=== PATIENT | female | born 1960 | race Caucasian/White ===

== ENCOUNTER → 2018-09-08 12:21 | Outpatient (CLI) | payer BC, SELFPAY ==
[2018-09-08 16:28] LABS: Alanine Aminotransfer ALT/SGPT 49 U/L (13-56); Cholesterol 195 mg/dL (200); Creatinine, Serum 0.93 mg/dL (0.55-1.02); EST Glomerular Filtration Rate 66 mL/min (>60); Est Glom Filt Rate - Afr Amer 80 mL/min (>60); High Density Lipoprotein 53 mg/dL; Thyroid Stim Hormone (TSH) 0.86 uIU/mL (0.358-3.74); Triglycerides 155 mg/dL; Very Low Density Lipoprotein 31 mg/dL (5-40)
== END ==
PROVIDERS: Family Provider Family Medicine; PCP Family Medicine; Visit Provider Family Medicine
DX: E78.00 Pure hypercholesterolemia, unspecified (principal)
CPT/HCPCS: 36415; 80061; 82565; 84443; 84460

== ENCOUNTER → 2018-11-19 08:17 | Outpatient (CLI) | payer BC, SELFPAY ==
--- NOTE | 2018-11-19 08:21 | BI_ITS ---
MAMMOGRAPHY - BILATERAL SCREENING REASON FOR EXAM: Female, 58 years old. Routine annual screening examination. PERTINENT HISTORY: Aunt with breast cancer. Prior ultrasound-guided right breast biopsy. TECHNIQUE: Digital bilateral breast young (3D mammographic acquisition) in the CC and MLO projections. 2-D mediolateral oblique (MLO) and craniocaudad (CC) views of both breasts were obtained. CAD: Full Field Digital Mammography with Computer Added Detection was performed. COMPARISON: Comparison is made with prior mammogram dated April 21, 2017 and March 26, 2017. FINDINGS: Breast Composition: There are scattered areas of fibroglandular density. There are no dominant masses or suspicious calcifications. A tissue clip marker is seen in the upper slightly lateral portion of the right breast. A tiny nodular density is seen at that site. No other significant abnormalities are identified. There has been no significant change since the prior study. BI/SCREENING MAMM (CAD), BILAT IMPRESSION: Stable bilateral screening mammogram. Yearly follow-up mammogram recommended. (A) ASSESSMENT CATEGORY: BIRADS Category 2: Benign. A letter regarding these results will be sent to the patient by the facility within 30 days. Approximately 10% of breast cancers are not detected by mammography. A normal mammogram should not delay biopsy of a clinically suspicious abnormality. [id number] Electronically Signed: Javier Spivey MD at 10:04 EST Tel [phone], Service support ,
== END ==
PROVIDERS: Family Provider Family Medicine; PCP Family Medicine; Referring Provider Family Medicine; Visit Provider Family Medicine
DX: Z12.31 Encounter for screening mammogram for malignant neoplasm of breast (principal); Z80.3 Family history of malignant neoplasm of breast
CPT/HCPCS: 77063; 77067

== ENCOUNTER → 2019-09-14 10:22 | Outpatient (CLI) | payer BC, SELFPAY ==
[2019-09-14 12:48] LABS: Absolute Lymphocyte Count 2.13 X10^3/uL (0.83-4.51); Absolute Neutrophil Count 3.8 X10^3/uL (2.0-7.7); Basophil# 0.03 X10^3/uL; Basophil% 0.4 % (0-1); Eosinophil# 0.22 X10^3/uL; Eosinophils% 3.3 % (0-5); Hematocrit 43.4 % (37-47); Hemoglobin 14.2 g/dL (12.0-15.0); Lymphocyte # 2.13 X10^3/ul (4.0); Lymphocyte % 31.5 % (19-41); Mean Corp Hgb Conc 32.7 g/dL (32-36); Mean Corpuscular Hgb 30.5 pg (27.0-32.0); Mean Corpuscular Volume 93.3 fL (81-99); Mean Platelet Vol. 12.3 fl (6.2-12.0); Monocyte# 0.53 X10^3/uL; Monocyte% 7.8 % (0-10); NRBC Flagged by Analyzer 0 % (0-5); Neutrophil # 3.82 X10^3/uL (2.7-7.7); Neutrophil % 56.6 % (47-70); Platelet Count 196 K/mm3 (150-450); RBC Distribution Width CV 12.4 % (11.6-14.6); RBC Distribution Width SD 42.5 fl (35.1-43.9); Red Blood Count 4.65 M/mm3 (4.2-5.4); White Blood Count 6.8 K/mm3 (4.4-11.0)
[2019-09-14 13:30] LABS: ALB/GLOB Ratio 1.2 RATIO (0.9-2.4); AST(SGOT) 22 U/L (15-37); Alanine Aminotransfer ALT/SGPT 42 U/L (13-56); Albumin, Serum 3.8 g/dL (3.2-5.0); Alkaline Phosphatase 84 U/L (45-117); Anion Gap 6 (5-15); BUN 14 mg/dL (7-18); BUN/Creat Ratio 16.5 RATIO (10-20); Chloride 109 mmol/L (98-107); Cholesterol 185 mg/dL (200); Creatinine, Serum 0.85 mg/dL (0.55-1.02); EST Glomerular Filtration Rate 73 mL/min (>60); Est Glom Filt Rate - Afr Amer 88 mL/min (>60); Globulin 3.3 g/dL (2.2-4.2); Glucose 93 mg/dL (74-106); High Density Lipoprotein 57 mg/dL; Protein, Total 7.1 g/dL (6.4-8.2); Sodium Level 140 mmol/L (136-145); Thyroid Stim Hormone (TSH) 0.91 uIU/mL (0.358-3.74); Triglycerides 143 mg/dL; Very Low Density Lipoprotein 29 mg/dL (5-40)
== END ==
PROVIDERS: Family Provider Family Medicine; PCP Family Medicine; Referring Provider Family Medicine; Visit Provider Family Medicine
DX: Z00.00 Encounter for general adult medical examination without abnormal findings (principal); F17.200 Nicotine dependence, unspecified, uncomplicated
CPT/HCPCS: 36415; 80053; 80061; 84443; 85025

== ENCOUNTER → 2019-12-10 08:09 | Outpatient (CLI) | payer BC, SELFPAY ==
--- NOTE | 2019-12-10 08:12 | BI_ITS ---
MAMMOGRAPHY - BILATERAL SCREENING REASON FOR EXAM: Female, 59 years old. Routine annual screening examination. PERTINENT HISTORY: Aunt with breast cancer. Prior right breast biopsy. TECHNIQUE: Digital bilateral breast lisandra (3D mammographic acquisition) in the CC and MLO projections. 2-D mediolateral oblique (MLO) and craniocaudad (CC) views of both breasts were obtained. CAD: Full Field Digital Mammography with Computer Added Detection was performed. COMPARISON: Comparison is made with prior study dated November 19, 2018 and April 21, 2017. FINDINGS: Breast Composition: There are scattered areas of fibroglandular density. There are no dominant masses or suspicious calcifications. Stable small benign-appearing bilateral axillary lymph nodes. A tissue clip marker is once again seen in the upper slightly outer portion of the right breast. This is seen within the tiny nodular density. Stable 4.8 mm nodule in the deep medial aspect of the left breast most likely representing a small intramammary lymph node. No other significant abnormalities are identified. There has been no significant change since the prior study. BI/SCREEN MAMM (CAD) W/LISANDRA BILAT IMPRESSION: Stable bilateral screening mammogram. Yearly follow-up mammogram recommended. (A) ASSESSMENT CATEGORY: BIRADS Category 2: Benign. A letter regarding these results will be sent to the patient by the facility within 30 days. Approximately 10% of breast cancers are not detected by mammography. A normal mammogram should not delay biopsy of a clinically suspicious abnormality. [id number] Electronically Signed: Javier Spivey, at 11:15 EST , Service support ,
== END ==
PROVIDERS: Family Provider Family Medicine; PCP Family Medicine; Referring Provider Family Medicine; Visit Provider Family Medicine
DX: Z12.31 Encounter for screening mammogram for malignant neoplasm of breast (principal)
CPT/HCPCS: 77063; 77067

== ENCOUNTER → 2020-09-28 15:53 | Outpatient (CLI) | payer BC, SELFPAY ==
--- NOTE | 2020-09-28 15:59 | CT_ITS ---
STUDY: CT CHEST WITHOUT CONTRAST- LOW DOSE SCREENING PROTOCOL REASON FOR EXAM: Female, 60 years old. Current smoker. 20 pack per year history. No current symptoms of lung cancer or pulmonary infection. Shared decision-making with referring PCP documented in patient''s record. RADIATION DOSAGE (If Supplied By Facility): CTDIvol = ( 3.40 ) mGy, DLP = ( 109.34 ) mGycm TECHNIQUE: Low dose screening CT examination performed from the base of the neck to the upper abdomen. Sagittal and coronal reformatted images performed. Sagittal and coronal MIP images provided. The measurements provided are average, rounded measurements per ACR guidelines. COMPARISON: 03/14/2017 FINDINGS: Mild emphysematous changes. There is no change in a 4 mm noncalcified subpleural nodule in the right middle lobe the lungs on image 127 consistent with a noncalcified granuloma. This requires no further follow-up. No new noncalcified nodule or mass. There is no demonstrated pleural abnormality. Normal heart and pericardium. There are calcifications of the coronary arteries. Normal mediastinum. Normal hilar regions. Normal unenhanced pulmonary arteries. Normal aorta arch and descending thoracic aorta. Normal osseous structures. There is no demonstrated abnormality of the visualized upper abdomen. CT/Low Dose CT Lung Screening IMPRESSION: 1. No significant indeterminate incidental findings requiring additional imaging. 2. Incidental findings include mild emphysema.. ASSESSMENT CATEGORY: LungRADS 2 - Benign Appearance or Behavior. Continue annual screening with LDCT in 12 months, per established ACR guidelines. Electronically Signed: Quinn Sherman MD at 13:38 EDT Tel , Service support ,
== END ==
PROVIDERS: PCP Family Medicine; Referring Provider Family Medicine; Visit Provider Family Medicine
DX: F17.210 Nicotine dependence, cigarettes, uncomplicated (principal)
CPT/HCPCS: G0297

== ENCOUNTER → 2021-01-03 07:43 | Outpatient (CLI) | payer BC, SELFPAY ==
--- NOTE | 2021-01-03 07:32 | BI_ITS ---
MAMMOGRAPHY - BILATERAL SCREENING REASON FOR EXAM: Female, 60 years old. Routine annual screening examination. PERTINENT HISTORY: Aunt with breast cancer. Remote right stereotactic breast biopsy. TECHNIQUE: Digital bilateral breast lisandra (3D mammographic acquisition) in the CC and MLO projections. 2-D mediolateral oblique (MLO) and craniocaudad (CC) views of both breasts were obtained. CAD: Full Field Digital Mammography with Computer Added Detection was performed. COMPARISON: Comparison is made with prior study dated 12/10/2019 and 11/19/2018. FINDINGS: Breast Composition: There are scattered areas of fibroglandular density. There are no dominant masses or suspicious calcifications. A tissue clip marker is again seen in the slightly upper outer portion of the right breast. A persistent tiny nodule is seen at the biopsy site. Stable 4.8 mm nodule in the deep medial aspect of the left breast most likely represents a small lymph node. No other significant abnormalities are identified. There has been no significant change since the prior study. BI/SCRN MAMM (CAD)W/LISANDRA BILAT IMPRESSION: Stable bilateral screening mammogram. Yearly follow-up mammogram recommended. (A) ASSESSMENT CATEGORY: BIRADS Category 2: Benign. A letter regarding these results will be sent to the patient by the facility within 30 days. Approximately 10% of breast cancers are not detected by mammography. A normal mammogram should not delay biopsy of a clinically suspicious abnormality. [id number] Electronically Signed: Javier Spivey MD at 9:02 EST , Service support ,
== END ==
PROVIDERS: PCP Family Medicine; Referring Provider Family Medicine; Visit Provider Family Medicine
DX: Z12.31 Encounter for screening mammogram for malignant neoplasm of breast (principal)
CPT/HCPCS: 77063; 77067

== ENCOUNTER 2021-02-15 09:54 | Outpatient (RCR) | payer BC, SELFPAY ==
[2021-02-15] MEDS: COVID-19 VACC, MRNA(PFIZER)/PF 30 MCG/0.3 ML SYRINGE IM (12:22)
[2021-03-08] MEDS: COVID-19 VACC, MRNA(PFIZER)/PF 30 MCG/0.3 ML SYRINGE IM (11:46)
== END 2021-02-15 23:59 ==
LOC: IMMUN 09:54
PROVIDERS: PCP Family Medicine; Visit Provider Family Medicine
DX: Z23 Encounter for immunization (principal)
CPT/HCPCS: 0001A; 0002A; 91300

== ENCOUNTER → 2021-09-20 09:33 | Outpatient (CLI) | payer BC, SELFPAY ==
[2021-09-20 12:33] LABS: Hematocrit 43.5 % (37-47); Hemoglobin 14.3 g/dL (12.0-15.0); Mean Corp Hgb Conc 32.9 g/dL (32-36); Mean Corpuscular Hgb 30.7 pg (27.0-32.0); Mean Corpuscular Volume 93.3 fL (81-99); Mean Platelet Vol. 12.2 fl (6.2-12.0); Platelet Count 221 K/mm3 (150-450); RBC Distribution Width CV 12.7 % (11.6-14.6); RBC Distribution Width SD 43.6 fl (35.1-43.9); Red Blood Count 4.66 M/mm3 (4.2-5.4); White Blood Count 7.4 K/mm3 (4.4-11.0)
[2021-09-20 12:55] LABS: AST(SGOT) 19 U/L (15-37); Alanine Aminotransfer ALT/SGPT 43 U/L (13-56); Albumin, Serum 3.7 g/dL (3.2-5.0); Alkaline Phosphatase 85 U/L (45-117); Anion Gap 5 (5-15); BUN 11 mg/dL (7-18); BUN/Creat Ratio 12.1 RATIO (10-20); Calcium,Total 9.8 mg/dL (8.5-10.1); Chloride 108 mmol/L (98-107); Cholesterol 202 mg/dL (200); Creatinine, Serum 0.91 mg/dL (0.55-1.02); EST Glomerular Filtration Rate 67 mL/min (>60); Est Glom Filt Rate - Afr Amer 81 mL/min (>60); Globulin 3.6 g/dL (2.2-4.2); Glucose 102 mg/dL (74-106); High Density Lipoprotein 61 mg/dL; Potassium 4.1 mmol/L (3.5-5.1); Protein, Total 7.3 g/dL (6.4-8.2); Sodium Level 139 mmol/L (136-145); Triglycerides 141 mg/dL; Very Low Density Lipoprotein 28 mg/dL (5-40)
[2021-09-20 13:25] LABS: Hepatitis C Antibody Non-Reactive (Nonreactive)
== END ==
PROVIDERS: PCP Family Medicine; Referring Provider Family Medicine; Visit Provider Family Medicine
DX: E78.00 Pure hypercholesterolemia, unspecified (principal); F17.200 Nicotine dependence, unspecified, uncomplicated; Z11.59 Encounter for screening for other viral diseases
CPT/HCPCS: 36415; 80053; 80061; 85027; 86803

== ENCOUNTER → 2021-10-02 08:14 | Outpatient (CLI) | payer BC, SELFPAY ==
--- NOTE | 2021-10-02 08:21 | CT_ITS ---
EXAM: CT CHEST WITHOUT INTRAVENOUS CONTRAST : 1960 CLINICAL INDICATION: tobacco use TECHNIQUE: Helically acquired images were obtained of the chest without intravenous contrast. This CT exam was performed using one or more of the following dose reduction techniques: automated exposure control, adjustment of the mA and/or kV according to patient size, and/or use of iterative reconstruction technique. This report was created using [employer] report generation technology. COMPARISON: September 28, 2020 FINDINGS: LUNGS AND PLEURAL SPACES: Stable pleural-based nodule within the right middle lobe. Stable mild diffuse pulmonary emphysema. No pneumothorax. HEART: Prominent coronary artery calcification. Heart size is normal. No pericardial effusion. MEDIASTINUM: Unremarkable. No mediastinal or hilar adenopathy. Esophagus is unremarkable. No hiatal hernia. THYROID: Unremarkable. No thyroid lesions. BONES/JOINTS: Unremarkable. No suspicious lytic or blastic abnormality. VASCULATURE: Unremarkable. Thoracic aorta is non-dilated. CT/Low Dose CT Lung Screening IMPRESSION: 1. Stable 4 mm pleural-based right middle lobe pulmonary nodule. Pulmonary emphysema. Coronary artery calcification. 2. Lung-RADS score: 2 - Benign Appearance or Behavior. Recommend continued annual screening with low-dose CT (LDCT) in 12 months. Individualized dose optimization techniques were used for this CT. at 0900 Reported and signed by: Florentino Alvarez MD Electronically Signed: Florentino Alvarez MD at 8:58 EDT Tel , Service support ,
== END ==
PROVIDERS: PCP Family Medicine; Referring Provider Family Medicine; Visit Provider Family Medicine
DX: F17.200 Nicotine dependence, unspecified, uncomplicated (principal)
CPT/HCPCS: 71271

== ENCOUNTER → 2021-11-14 08:56 | Outpatient (CLI) | payer BC, SELFPAY ==
--- NOTE | 2021-11-14 09:00 | BD_ITS ---
STUDY: DUAL ENERGY X-RAY ABSORPTIOMETRY / DXA REASON FOR EXAM: Female, 61 years old. 305.1 -- NICOTINE DEPENDENCE TECHNIQUE: Bone Mineral Density (BMD) measurements of lumbar spine and bilateral hips were obtained. COMPARISON: None. FINDINGS: Lumbar Spine (L1-L4): g/cm2 (1.091) / T-score (0.4) / Z-score (1.9) Findings are suggestive of normal bone density with a low fracture risk. Left Femur Total: g/cm2 (0.845) / T-score (-0.8) / Z-score (0.2) Left Femoral Neck: g/cm2 (0.674) / T-score (1.6) / Z-score (-0.2) Right Femur Total: g/cm2 (0.870) / T-score (-0.6) / Z-score (0.5) Right Femoral Neck: g/cm2 (0.663) / T-score (-1.7) / Z-score (-0.3) BD/Dexa Bone Density Study IMPRESSION: The patient is considered osteopenic as outlined below according to World Hair Organization (WHO) criteria with a moderate fracture risk. Reference Information: The T-score is the number of standard deviations above or below the standard which is normal for young adults at their peak bone mineral density. The World Health Organization (WHO) interprets the T-scores as follows: Above -1 Normal bone density Between -1 and -2.5 Osteopenia Equal to / or below -2.5 Osteoporosis As a practical clinical guideline, osteopenia may be graded as follows: Mild -1 through -1.5 Moderate -1.6 through -2.0 Severe -2.1 through -2.4 The Z-score is the number of standard deviations above or below age-matched controls. A Z-score of less than -1.5 would be considered abnormal. References: 1. NIH Osteoporosis and Related Bone Diseases www osteo.org 2. International Society for Clinical Densitometry www iscd.org 3. National Osteoporosis Foundation www nof.org Electronically Signed: Javier Spivey MD at 9:46 EST , Service support ,
== END ==
PROVIDERS: PCP Family Medicine; Referring Provider Family Medicine; Visit Provider Family Medicine
DX: F17.200 Nicotine dependence, unspecified, uncomplicated (principal)
CPT/HCPCS: 77080

== ENCOUNTER → 2022-09-23 | Outpatient (CLI) | payer BC, SELFPAY ==
[2022-09-23 12:15] LABS: Absolute Lymphocyte Count 1.79 X10^3/uL (0.83-4.51); Absolute Neutrophil Count 3.7 X10^3/uL (2.0-7.7); Basophil# 0.02 X10^3/uL; Basophil% 0.3 % (0-1); Eosinophil# 0.24 X10^3/uL; Eosinophils% 3.8 % (0-5); Hematocrit 39.8 % (37-47); Hemoglobin 13.1 g/dL (12.0-15.0); Lymphocyte # 1.79 X10^3/ul (0.83-4.51); Lymphocyte % 28.3 % (19-41); Mean Corp Hgb Conc 32.9 g/dL (32-36); Mean Corpuscular Hgb 30.6 pg (27.0-32.0); Mean Platelet Vol. 12.1 fl (6.2-12.0); Monocyte# 0.54 X10^3/uL; Monocyte% 8.5 % (0-10); NRBC Flagged by Analyzer 0 % (0-5); Neutrophil # 3.72 X10^3/uL (2.7-7.7); Neutrophil % 58.9 % (47-70); Platelet Count 200 K/mm3 (150-450); RBC Distribution Width SD 43.9 fl (35.1-43.9); Red Blood Count 4.28 M/mm3 (4.2-5.4); White Blood Count 6.3 K/mm3 (4.4-11.0)
[2022-09-23 12:32] LABS: Alanine Aminotransfer ALT/SGPT 48 U/L (13-56); Cholesterol 169 mg/dL (200); EST Glomerular Filtration Rate 60 mL/min (>60); Est Glom Filt Rate - Afr Amer 72 mL/min (>60); High Density Lipoprotein 60 mg/dL; Triglycerides 91 mg/dL; Very Low Density Lipoprotein 18 mg/dL (5-40)
[2022-09-23 12:44] LABS: Hemoglobin A1c 5.4 % (3.8-5.6)
== END | disposition home or self-care (01) ==
LOC: MFPLAB 10:00
PROVIDERS: PCP Family Medicine; Referring Provider Family Medicine; Visit Provider Family Medicine
DX: Z00.00 Encounter for general adult medical examination without abnormal findings (principal)
CPT/HCPCS: 36415; 80061; 82565; 83036; 84460; 85025

== ENCOUNTER → 2022-10-03 | Outpatient (CLI) | payer BC, SELFPAY ==
--- NOTE | 2022-10-03 07:27 | CT_ITS ---
STUDY: LOW DOSE CT LUNG CANCER SCREENING REASON FOR EXAM: Female, 62 years old. Active tobacco use. 10 cigarettes a day for 40 years. RADIATION DOSAGE (If Supplied By Facility): CTDIvol = ( 3.02 ) mGy, DLP = ( 115.51 ) mGycm TECHNIQUE: No contrast was administered. Low dose technique was utilized (average mAS-38 and kVp 120). 1.25 mm axial source images with a slice interval of 1.25-mm were reconstructed in lung windows. 2.5 mm axial source images with a slice interval of 2.5-mm were reconstructed in lung windows. 5.0 mm axial source images with a slice interval of 5.0-mm were reconstructed in soft tissue windows. COMPARISON: October 02, 2021 NODULES: Nodule #: 1 Density: Solid Lung location: Right middle lobe: Pleural-based Location in series: Series Number: 2 Image: 145 Size - D1 x D2 mm: 4 x 4 mm: 4 mm average diameter Margin: Smooth Shape: Triangular Calcification: No Fat: No Temporal comparison: Stable Total lung nodules (excluding granulomas): 1 Emphysema: Stable mild emphysematous changes of the lungs. Endobronchial lesion: None Aorta: Normal CORONARY ARTERIES: Minimal coronary artery calcifications Heart: Normal Pulmonary artery: Normal Mediastinal nodes: No Other chest and abdominal findings: Mild degenerative changes of the thoracic spine. CT/Low Dose CT Lung Screening IMPRESSION: Lung-RADS category 2 - Continue annual screening with LDCT in 12 months. IMPORTANT NOTES FOR USE: ACR Lung-RADS Version 1.1 Assessment Categories Release Date: 2018 Category: Coded 0-4 bases on nodule(s) with highest degree of suspicion. Negative screen is defined as categories 1 and 2; a positive screen is defined as categories 3 and 4. Category 3 and 4A nodules that are unchanged on interval CT should be coded as category 2, and individuals returned to screening in 12 months. Category 4X: Category 3 or 4 nodules with additional imaging findings that increase the suspicion of lung cancer, such as spiculation, GGN that doubles in size in 1 year, enlarged lymph notes, etc. Category Modifiers: S (significant finding unrelated to lung cancer) Electronically Signed: Cam Saenz DO at 17:19 EDT Reading Location ID and State: [address] [place] [address] Tel [phone], Service support ,
--- NOTE | 2022-10-03 07:45 | BI_ITS ---
MAMMOGRAPHY - BILATERAL SCREENING REASON FOR EXAM: Female, 62 years old. Routine annual screening examination. PERTINENT HISTORY: Non-contributory. TECHNIQUE: Digital bilateral breast lisandra (3D mammographic acquisition) in the CC and MLO projections. 2-D mediolateral oblique (MLO) and craniocaudad (CC) views of both breasts were obtained. CAD: Full Field Digital Mammography with Computer Added Detection was performed. COMPARISON: Comparison is made with prior study dated 01/03/2021 and 12/10/2019. FINDINGS: Breast Composition: There are scattered areas of fibroglandular density. There are no dominant masses or suspicious calcifications. Stable 4.8 mm nodule in the deep medial aspect of the left breast. This most likely represent a small lymph node. A tissue clip marker is once again seen within the tiny nodule in the lateral retroareolar region of the right breast. Stable small benign-appearing bilateral axillary lymph nodes. No other significant abnormalities are identified. There has been no significant change since the prior study. BI/SCRN MAMM (CAD)W/LISANDRA BILAT IMPRESSION: Stable bilateral screening mammogram. Yearly follow-up mammogram recommended. (A) ASSESSMENT CATEGORY: BIRADS Category 2: Benign. A letter regarding these results will be sent to the patient by the facility within 30 days. Approximately 10% of breast cancers are not detected by mammography. A normal mammogram should not delay biopsy of a clinically suspicious abnormality. [id number] Electronically Signed: Javier Spivey MD at 9:02 EDT ,
== END | disposition home or self-care (01) ==
PROVIDERS: PCP Family Medicine; Referring Provider Family Medicine; Visit Provider Family Medicine
DX: Z12.31 Encounter for screening mammogram for malignant neoplasm of breast (principal); F17.200 Nicotine dependence, unspecified, uncomplicated
CPT/HCPCS: 71271; 77063; 77067

== ENCOUNTER → 2023-10-02 | Outpatient (CLI) | payer BC, SELFPAY ==
[2023-10-02 17:36] LABS: Absolute Lymphocyte Count 2.27 X10^3/uL (0.83-4.51); Absolute Neutrophil Count 2.9 X10^3/uL (2.0-7.7); Basophil# 0.02 X10^3/uL; Basophil% 0.3 % (0-1); Eosinophil# 0.12 X10^3/uL; Eosinophils% 2.1 % (0-5); Hematocrit 41.8 % (37-47); Hemoglobin 13.7 g/dL (12.0-15.0); Lymphocyte # 2.27 X10^3/ul (0.83-4.51); Lymphocyte % 39.6 % (19-41); Mean Corp Hgb Conc 32.8 g/dL (32-36); Mean Corpuscular Volume 91.5 fL (81-99); Mean Platelet Vol. 11.5 fl (6.2-12.0); Monocyte# 0.46 X10^3/uL; NRBC Flagged by Analyzer 0 % (0-5); Neutrophil # 2.85 X10^3/uL (2.7-7.7); Neutrophil % 49.8 % (47-70); Platelet Count 233 K/mm3 (150-450); RBC Distribution Width CV 12.8 % (11.6-14.6); RBC Distribution Width SD 42.6 fl (35.1-43.9); Red Blood Count 4.57 M/mm3 (4.2-5.4); White Blood Count 5.7 K/mm3 (4.4-11.0)
[2023-10-02 18:03] LABS: Hemoglobin A1c 5.2 % (3.8-5.6)
[2023-10-02 18:13] LABS: Alanine Aminotransfer ALT/SGPT 52 U/L (13-56); Cholesterol 179 mg/dL (200); Creatinine, Serum 0.92 mg/dL (0.55-1.02); EST Glomerular Filtration Rate 66 mL/min (>60); Est Glom Filt Rate - Afr Amer 79 mL/min (>60); High Density Lipoprotein 64 mg/dL; Triglycerides 105 mg/dL; Very Low Density Lipoprotein 21 mg/dL (5-40)
== END | disposition home or self-care (01) ==
LOC: MFPLAB 15:37
PROVIDERS: PCP Family Medicine; Visit Provider Family Medicine
DX: E66.01 Morbid (severe) obesity due to excess calories (principal); E78.00 Pure hypercholesterolemia, unspecified; Z68.36 Body mass index [BMI] 36.0-36.9, adult
CPT/HCPCS: 36415; 80061; 82565; 83036; 84460; 85025

== ENCOUNTER → 2023-11-17 | Outpatient (CLI) | payer BC, SELFPAY ==
--- NOTE | 2023-11-17 08:14 | BI_ITS ---
MAMMOGRAPHY - BILATERAL SCREENING REASON FOR EXAM: Female, 63 years old. Routine annual screening examination. PERTINENT HISTORY: Non-contributory. TECHNIQUE: Digital bilateral breast lisandra (3D mammographic acquisition) in the CC and MLO projections. 2-D mediolateral oblique (MLO) and craniocaudad (CC) views of both breasts were obtained. CAD: Full Field Digital Mammography with Computer Added Detection was performed. COMPARISON: Comparison is made with prior study dated October 03, 2022 and January 03, 2021. FINDINGS: Breast Composition: There are scattered areas of fibroglandular density. Stable 7.4 mm nodule in the deep medial aspect of the left breast dated this most likely represents a small lymph node. Once again, a tissue clip marker is seen in the tiny nodule in the lateral retroareolar region of the right breast. No other significant abnormalities are identified. There has been no significant change since the prior study. BI/SCRN MAMM (CAD)W/LISANDRA BILAT IMPRESSION: Stable bilateral screening mammogram. Yearly follow-up mammogram recommended. (A) ASSESSMENT CATEGORY: BIRADS Category 2: Benign. A letter regarding these results will be sent to the patient by the facility within 30 days. Approximately 10% of breast cancers are not detected by mammography. A normal mammogram should not delay biopsy of a clinically suspicious abnormality. [id number] Electronically Signed: Javier Spivey MD at 9:58 EST ,
== END | disposition home or self-care (01) ==
LOC: OPBI 08:12
PROVIDERS: PCP Family Medicine; Referring Provider Family Medicine; Visit Provider Family Medicine
DX: Z12.31 Encounter for screening mammogram for malignant neoplasm of breast (principal)
CPT/HCPCS: 77063; 77067

== ENCOUNTER → 2024-10-04 | Outpatient (CLI) | payer BC, SELFPAY ==
[2024-10-04 10:43] LABS: ALB/GLOB Ratio 1.1 RATIO (0.9-2.4); AST(SGOT) 26 U/L (15-37); Alanine Aminotransfer ALT/SGPT 57 U/L (13-56); Albumin, Serum 3.7 g/dL (3.2-5.0); Alkaline Phosphatase 82 U/L (45-117); Anion Gap 8 (5-15); BUN 21 mg/dL (7-18); Calcium,Total 8.9 mg/dL (8.5-10.1); Chloride 110 mmol/L (98-107); Cholesterol 215 mg/dL (200); Creatinine, Serum 1.05 mg/dL (0.55-1.02); EST Glomerular Filtration Rate 56 mL/min (>60); Est Glom Filt Rate - Afr Amer 68 mL/min (>60); Globulin 3.4 g/dL (2.2-4.2); Glucose 109 mg/dL (74-106); High Density Lipoprotein 75 mg/dL; Potassium 3.9 mmol/L (3.5-5.1); Protein, Total 7.1 g/dL (6.4-8.2); Sodium Level 142 mmol/L (136-145); Triglycerides 139 mg/dL; Very Low Density Lipoprotein 28 mg/dL (5-40)
== END | disposition home or self-care (01) ==
LOC: MFPLAB 09:26
PROVIDERS: PCP Family Medicine; Visit Provider Family Medicine
DX: E78.00 Pure hypercholesterolemia, unspecified (principal)
CPT/HCPCS: 36415; 80053; 80061

== ENCOUNTER → 2024-11-25 | Outpatient (CLI) | payer BC, SELFPAY ==
--- NOTE | 2024-11-25 08:32 | BI_ITS ---
MAMMOGRAPHY - BILATERAL SCREENING 3-D TOMOSYNTHESIS REASON FOR EXAM: Female, 64 years old. bi-annual screening PERTINENT HISTORY: No significant family history. TECHNIQUE: 2-D mammograms and 3-D Tomosynthesis of the breast (s) were performed. CAD was performed. COMPARISON: 11/17/2023 FINDINGS: The breast composition is composed of scattered fibroglandular density. Scattered benign calcifications are seen. No dominant mass right breast. 1 cm irregular microlobulated equal density mass in the medial left breast at posterior depth and focal compression views recommended for further evaluation. No suspicious calcifications.. No architectural distortion is identified. There is no skin thickening or retraction. BI/SCRN MAMM (CAD)W/LISANDRA BILAT IMPRESSION: Further imaging evaluation is recommended. ASSESSMENT CATEGORY: BIRADS Category 0: Incomplete. Need additional imaging evaluation as above. A letter regarding these results will be sent to the patient by the facility within 30 days. FOLLOW UP RECOMMENDATION: Additional imaging recommended as above. (E) Approximately 10% of breast cancers are not detected by mammography. A normal mammogram should not delay biopsy of a clinically suspicious abnormality. Electronically Signed: Quinn Sherman MD at 19:40 EST ,
== END | disposition home or self-care (01) ==
PROVIDERS: PCP Family Medicine; Referring Provider Family Medicine; Visit Provider Family Medicine
DX: Z12.31 Encounter for screening mammogram for malignant neoplasm of breast (principal)
CPT/HCPCS: 77063; 77067

== ENCOUNTER → 2024-11-29 | Outpatient (CLI) | payer BC, SELFPAY ==
--- NOTE | 2024-11-29 14:25 | BI_ITS ---
MAMMOGRAPHY - UNILATERAL DIAGNOSTIC: LEFT BREAST REASON FOR EXAM: Female, 64 years old. ABN MAMM PERTINENT HISTORY: Non-contributory. TECHNIQUE: Digital examination. Mediolateral oblique (MLO) and craniocaudad (CC) views of the breast were obtained. CAD: CAD was not performed on this study. COMPARISON: 11/25/2024 FINDINGS: Breast Composition: There are scattered areas of fibroglandular density. Focal compression views confirm a 1 cm irregular microlobulated equal density mass in the lower quadrant left breast at posterior depth and ultrasound is recommended for further evaluation. No other significant abnormalities are identified. BI/DIAG MAMM W/CAD, UNILAT IMPRESSION: Further ultrasonographic evaluation recommended, as described above. ASSESSMENT CATEGORY: BIRADS Category 0: Incomplete. Need additional imaging evaluation. A letter regarding these results will be sent to the patient by the facility within 30 days. FOLLOW-UP RECOMMENDATION: Ultrasound recommended. (I) Approximately 10% of breast cancers are not detected by mammography. A normal mammogram should not delay biopsy of a clinically suspicious abnormality. Electronically Signed: Quinn Sherman MD at 14:54 EST ,
--- NOTE | 2024-11-29 14:25 | US_ITS ---
STUDY: ULTRASOUND BREAST - LEFT REASON FOR EXAM: Female, 64 years old. Abnormal screening mammogram. TECHNIQUE: Axial and longitudinal images of the LEFT breast were performed with a high resolution ultrasound transducer. # OF IMAGES: 54 COMPARISON: Diagnostic mammogram earlier today, screening mammogram 11/25/2024 FINDINGS: LEFT Breast: Homogeneous fatty background echotexture. Multiple longitudinal and transverse ultrasound images of the medial left breast did not demonstrate a discrete solid or cystic mass most consistent with normal breast parenchyma.: US/Breast Limited Unilateral IMPRESSION: Normal left breast ultrasound. Short interval follow-up is recommended. CC, MLO, CC focal compression, and MLO focal compression views of the left breast are recommended in 6 months. ASSESSMENT CATEGORY: BIRADS Category 3: Probably Benign. Short-Interval Follow-up Suggested. A letter regarding these results will be sent to the patient by the facility within 30 days. Electronically Signed: Quinn Sherman MD at 18:46 EST ,
== END | disposition home or self-care (01) ==
PROVIDERS: PCP Family Medicine; Referring Provider Family Medicine; Visit Provider Family Medicine
DX: R92.8 Other abnormal and inconclusive findings on diagnostic imaging of breast (principal)
CPT/HCPCS: 76642; 77065

== ENCOUNTER → 2025-05-04 | Outpatient (CLI) | payer MEDICARE, SELFPAY ==
--- OUTSIDE RECORDS SUMMARY | 2025-05-04 09:07 | XMS RPT_ITS | CCD ---
Author Organization [facility] Care Team Providers Care Acid Bath Mixer Name Role Phone Allen CRUZ, Beatris F Unavailable Unavailabl e Kwame Frias Unavailable Unavailable Allen CRUZ, Beatris F Unavailable Unavailsiria e Trever Saldana Primary Care Unavailable Trever Saldana Attending Unavailable Trever Saldana Referring Unavailable Les Trever Referring Unavailable Trever Saldana Primary Care Unavailable Les Trever Attending Unavailable Les Trever Referring Unavailable Trever Saldana Primary Care Unavailable Les Trever Attending Unavailable Les Trever Primary Care Unavailable Les Trever Attending Unavailable Medications Current Medications Medication Drug Class(es) Dates Sig (Normalized) Sig (Original) atorvastatin 20 mg oral tablet (4 sources) HMG-CoA Reductase Inhibitor Start: 11-17-2017 take 20 mg by mouth once daily Atorvastatin Active 20 MG PO daily November 17, 2017 12:00am take 1 tablet by mouth once piotr y ATORVASTATIN CALCIUM 20 MG TABS One tablet by mouth daily ATORVASTATIN CALCIUM [id number] Valentina Walker ibuprofen 200 mg oral capsule (4 sources) Nonsteroidal Anti-inflammatory Drug Start: 11-17-2017 take 200 mg by mouth once Ibuprofen Active 200 MG PO ONCE November 17, 2017 12:00am IBUPROFEN 200 MG TABS as needed IBUPROFEN [id number] Valentina Walker Problems Active Problems Problem Classification Problem Date Documented Da te Episodic/Chronic Disorders of lipid metabolism (1 source) Pure hypercholesterolemi a, unspecified; Translations: [Pure hypercholesterolemi a, unspecified] Onset: 10-25-2024 Chronic Nonmalignant breast conditions (3 sources) Breast lump; Translations: [Unspecified lump in the right breast, unspecified quadrant] Onset: 04-01-2017 04-01-2017 Episodic Other nutritional; endocrine; and metabolic disorders (4 sources) Overweight; Translations: [Body mass index (BMI) 34.0-34.9, adult] Onset: 04-01-2017 04-01-2017 Chronic Residual codes; unclassified (1 source) Other general symptoms and signs; Translations: [Other general symptoms and signs] Onset: 05-02-2025 Episodic Screening or history of mental health and substance abuse (3 sources) Smoker; Translations: [Nicotine dependence, unspecified, uncomplicated] Onset: 08-22-2015 09-09-2015 Chronic Past or Other Problems Problem Classification Problem Date Documented Da te Episodic/Chronic Other infections (3 sources) Personal history of other infectious and parasitic diseases; Translations: [Personal history of other infectious and parasitic diseases] Onset: 08-22-2015 08-29-2015 Episodic Other screening for suspected conditions (not mental disorders or infectious disease) (2 sources) Other abnormal and inconclusive findings on diagnostic imaging of breast; Translations: [Encounter for screening mammogram for malignant neoplasm of breast] Onset: 12-19-2024 Episodic Other skin disorders (3 sources) Localized swelling, mass and lump, neck; Translations: [Localized swelling, mass and lump, neck] Onset: 08-22-2015 08-29-2015 Episodic Unclassified (3 sources) Family history of malignant neoplasm of skin; Translations: [Family history of malignant neoplasm of other organs or systems] Onset: 08-22-2015 09-09-2015 Episodic Results Test Name Value Interpretation Reference Range Facility Breast Limited Unilateralon 11-29-2024 Breast Limited Unilateral [facility] Imaging Services [address] [place] [address] Breast Limited Unilateral MR#: [id number] Acct: [id number] Name: DHAVAL COLON [facility] Rep #: [id number] : 1960 F 64 From: Quinn Sherman MD PCP: Dr. Trever Saldana MD Status: REG CLI Study: Breast Limited Unilateral Date of Exam: Exam# [id number] Ordering Dr: Trever Saldana MD -[id number] STUDY: ULTRASOUND BREAST - LEFT REASON FOR EXAM: Female, 64 years old. Abnormal screening mammogram. TECHNIQUE: Axial and longitudinal images of the LEFT breast were performed with a high resolution ultrasound transducer. # OF IMAGES: [id number] COMPARISON: Diagnostic mammogram earlier today, screening mammogram 11/25/2024 FINDINGS: LEFT Breast: Homogeneous fatty background echotexture. Multiple longitudinal and transverse ultrasound images of the medial left breast did not demonstrate a discrete solid or cystic mass most consistent with normal breast parenchyma.: US/Breast Limited Unilateral IMPRESSION: Normal left breast ultrasound. Short interval follow-up is recommended. CC, MLO, CC focal compression, and MLO focal compression views of the left breast are recommended in 6 months. ASSESSMENT CATEGORY: BIRADS Category 3: Probably Benign. Short-Interval Follow-up Suggested. A letter regarding these results will be sent to the patient by the facility within 30 days. Electronically Signed: Quinn Sherman MD at 18:46 EST , CC: Dr. Trever Saldana MD Engraver Tender: Signed Normal [facility] DIAG MAMM W/CAD, UNILATon DIAG MAMM W/CAD, UNILAT [facility] Imaging Services [address] [place] [id number] DIAG MAMM W/CAD, UNILAT MR#: [id number] Acct: [id number] Name: DHAVAL COLON Rep #: [id number] : 1960 F 64 From: Quinn Sherman MD PCP: Dr. Trever Saldana MD Status: [facility] Study: DIAG MAMM W/CAD, UNILAT Date of Exam: 11/29/24 Exam# [id number] Ordering Dr: Trever Saldana MD -[id number] MAMMOGRAPHY - UNILATERAL DIAGNOSTIC: LEFT BREAST REASON FOR EXAM: Female, 64 years old. ABN MAMM PERTINENT HISTORY: Non-contributory. TECHNIQUE: Digital examination. Mediolateral oblique (MLO) and craniocaudad (CC) views of the breast were obtained. CAD: CAD was not performed on this study. COMPARISON: 11/25/2024 FINDINGS: Breast Composition: There are scattered areas of fibroglandular density. Focal compression views confirm a 1 cm irregular microlobulated equal density mass in the lower quadrant left breast at posterior depth and ultrasound is recommended for further evaluation. No other significant abnormalities are identified. BI/DIAG MAMM W/CAD, UNILAT IMPRESSION: Further ultrasonographic evaluation recommended, as described above. ASSESSMENT CATEGORY: BIRADS Category 0: Incomplete. Need additional imaging evaluation. A letter regarding these results will be sent to the patient by the facility within 30 days. FOLLOW-UP RECOMMENDATION: Ultrasound recommended. (I) Approximately 10% of breast cancers are not detected by mammography. A normal mammogram should not delay biopsy of a clinically suspicious abnormality. Electronically Signed: Quinn Sherman MD at 14:54 EST , CC: Dr. Trever Saldana MD Engraver Tender: Signed Normal [facility] SCRN MAMM (CAD)W/LISANDRA BILATo n 11-25-2024 SCRN MAMM (CAD)W/LISANDRA BILAT [facility] Imaging Services [address] [place] [address] SCRN MAMM (CAD)W/LISANDRA BILAT MR#: [id number] Acct: [id number] Name: DHAVAL COLON Rep #: [id number] : 1960 F 64 From: Quinn Sherman MD PCP: Dr. Trever Saldana MD Status: REG CLI Study: SCRN MAMM (CAD)W/LISANDRA BILAT Date of Exam: 10/31 06/22 Exam# [id number] Ordering Dr: Trever Saldana MD -[id number] MAMMOGRAPHY - BILATERAL SCREENING 3-D TOMOSYNTHESIS REASON FOR EXAM: Female, 64 years old. bi-annual screening PERTINENT HISTORY: No significant family history. TECHNIQUE: 2-D mammograms and 3-D Tomosynthesis of the breast (s) were performed. CAD was performed. COMPARISON: 11/17/2023 FINDINGS: The breast composition is composed of scattered fibroglandular density. Scattered benign calcifications are seen. No dominant mass right breast. 1 cm irregular microlobulated equal density mass in the medial left breast at posterior depth and focal compression views recommended for further evaluation. No suspicious calcifications.. No architectural distortion is identified. There is no skin thickening or retraction. BI/SCRN MAMM (CAD)W/LISANDRA BILAT IMPRESSION: Further imaging evaluation is recommended. ASSESSMENT CATEGORY: BIRADS Category 0: Incomplete. Need additional imaging evaluation as above. A letter regarding these results will be sent to the patient by the facility within 30 days. FOLLOW UP RECOMMENDATION: Additional imaging recommended as above. (E) Approximately 10% of breast cancers are not detected by mammography. A normal mammogram should not delay biopsy of a clinically suspicious abnormality. Electronically Signed: Quinn Sherman MD at 19:40 EST , CC: Dr. Trever Saldana MD Engraver Tender: Signed Normal [facility] Comprehensive Metabolic Prof ilon 10-04-2024 Albumin [Mass/Vol] 3.7 g/dL Normal 3.2-5.0 [facility] Comment on above: Order Comment: Order Date: 10/04/24 Order Info: 0786-1 - CMP Order Info: [id number] - LIPID Performed By: #### L 500.4100, L500.4050 #### [facility] [address] [place], [address] Albumin/Globulin [Mass ratio] 1.1 {ratio} Normal 0.9-2.4 [facility] Comment on above: Order Comment: Order Date: 10/04/24 Order Info: 0786-1 - CMP Order Info: [id number] - LIPID Performed By: #### L 500.4100, L500.4050 #### [facility] [address] [place], [address] ALK P 82 U/L Normal 45-117 [facility] Comment on above: Order Comment: Order Date: 10/04/24 Order Info: [id number] - CMP Order Info: [id number] - LIPID Performed By: #### L 500.4100, L500.4050 #### [facility] [address] [place], [address] ALT [Catalytic activity/Vol] 57 U/L High 13-56 [facility] Comment on above: Order Comment: Order Date: 10/04/24 Order Info: 0786-1 - CMP Order Info: [id number] - LIPID Performed By: #### L 500.4100, L500.4050 #### [facility] [address] [place], [address] AST [Catalytic activity/Vol] 26 U/L Normal 15-37 [facility] Comment on above: Order Comment: Order Date: 10/04/24 Order Info: 0786-1 - CMP Order Info: [id number] - LIPID Performed By: #### L 500.4100, L500.4050 #### [facility] [address] [place], [address] Bilirubin [Mass/Vol] 0.80 mg/dL Normal 0.20-1.00 [facility] Comment on above: Order Comment: Order Date: 10/04/24 Order Info: 0786-1 - CMP Order Info: [id number] - LIPID Result Comment: For patients on eltrombopag therapy, use of Dimension [place] TBIL is not recommended. Performed By: #### L 500.4100, L500.4050 #### [facility] [address] [place], [address] BUN/CRE 20.0 RATIO Normal 10-20 [facility] Comment on above: Order Comment: Order Date: 10/04/24 Order Info: 0786- - CMP Order Info: [id number] - LIPID Performed By: #### L 500.4100, L500.4050 #### [facility] [address] [place], [address] CA,Total 8.9 mg/dL Normal 8.5-10.1 [facility] Comment on above: Order Comment: Order Date: 10/04/24 Order Info: 0786- - CMP Order Info: [id number] - LIPID Performed By: #### L 500.4100, L500.4050 #### [facility] [address] [place], [address] Chloride [Moles/Vol] 110 mmol/L High 98-107 [facility] Comment on above: Order Comment: Order Date: 10/04/24 Order Info: 0786- - CMP Order Info: [id number] - LIPID Performed By: #### L 500.4100, L500.4050 #### [facility] [address] [place], [address] CO2 [Moles/Vol] 25.0 mmol/L Normal 21.0-32.0 [facility] Comment on above: Order Comment: Order Date: 10/04/24 Order Info: 0786-1 - CMP Order Info: [id number] - LIPID Performed By: #### L 500.4100, L500.4050 #### [facility] [address] [place], [address] Creatinine [Mass/Vol] 1.05 mg/dL High 0.55-1.02 [facility] Comment on above: Order Comment: Order Date: 10/04/24 Order Info: 07 - CMP Order Info: [id number] - LIPID Result Comment: The validity of the calculated GFR GFRAA in patients over 70 years has not been determined. Clinical correlation is essential. Performed By: #### L 500.4100, L500.4050 #### [facility] [address] [place], [place], [id number] EST GFR - AA 68 mL/min Normal >60 [facility] Comment on above: Order Comment: Order Date: 10/04/24 Order Info: 07 - CMP Order Info: [id number] - LIPID Result Comment: Afri can [place] GFR Calc Performed By: #### L 500.4100, L500.4050 #### [facility] [address] [place], [address] GAP 8 Normal 5-15 [facility] Comment on above: Order Comment: Order Date: 10/04/24 Order Info: [id number] - CMP Order Info: [id number] - LIPID Performed By: #### L 500.4100, L500.4050 #### [facility] [address] [place], [address] GFR/1.73 sq M.predicted among non-blacks MDRD (S/P/Bld) [Vol rate/Area] 56 mL/min/{1.73_m2} Low >60 [facility] Comment on above: Order Comment: Order Date: 10/04/24 Order Info: 07 - CMP Order Info: [id number] - LIPID Result Comment: Non- GFR Calc Performed By: #### L 500.4100, L500.4050 #### [facility] [address] [place], [address] Globulin (S) [Mass/Vol] 3.4 g/dL Normal 2.2-4.2 [facility] Comment on above: Order Comment: Order Date: 10/04/24 Order Info: 0786- - CMP Order Info: [id number] - LIPID Performed By: #### L 500.4100, L500.4050 #### [facility] [address] [place], [address] Glucose [Mass/Vol] 109 mg/dL High 74-106 [facility] Comment on above: Order Comment: Order Date: 10/04/24 Order Info: 0786- - CMP Order Info: [id number] - LIPID Result Comment: Fast ing Glucose result from 100 to 125 mg/dL suggests IMPAIRED HOMEOSTASIS per A.D.A. criteria. Performed By: #### L 500.4100, L500.4050 #### [facility] [address] [place], [address] Potassium [Moles/Vol] 3.9 mmol/L Normal 3.5-5.1 [facility] Comment on above: Order Comment: Order Date: 10/04/24 Order Info: 0786- - CMP Order Info: [id number] - LIPID Performed By: #### L 500.4100, L500.4050 #### [facility] [address] [place], [address] Sodium [Moles/Vol] 142 mmol/L Normal 136-145 [facility] Comment on above: Order Comment: Order Date: 10/04/24 Order Info: 0786- - CMP Order Info: [id number] - LIPID Performed By: #### L 500.4100, L500.4050 #### [facility] [address] [place], [address] T PROT 7.1 g/dL Normal 6.4-8.2 [facility] Comment on above: Order Comment: Order Date: 10/04/24 Order Info: 0786-1 - CMP Order Info: [id number] - LIPID Performed By: #### L 500.4100, L500.4050 #### [facility] [address] [place], [address] Urea nitrogen [Mass/Vol] 21 mg/dL High 7-18 [facility] Comment on above: Order Comment: Order Date: 10/04/24 Order Info: 0786 - CMP Order Info: [id number] - LIPID Performed By: #### L 500.4100, L500.4050 #### [facility] [address] [place], [address] Lipid Profileon 10-04-2024 Cholesterol [Mass/Vol] 215 mg/dL High 200 [facility] Comment on above: Order Comment: Order Date: 10/04/24 Order Info: 07 - CMP Order Info: [id number] - LIPID Result Comment: <200 mg/dL Desirable 200-240 mg/dL Borderline >240 mg/dL High Risk Performed By: #### L 500.4100, L500.4050 #### [facility] [address] [place], [address] Cholesterol in HDL [Mass/Vol] 75 mg/dL Normal [facility] Comment on above: Order Comment: Order Date: 10/04/24 Order Info: 0786 - CMP Order Info: [id number] - LIPID Result Comment: The drugs N-Acetylcysteine and Metamizole may falsely depress this assay. Reference Range HDL <40 mg/dL Low HDL Cholesterol HDL >or= 60 mg/dL High HDL Cholesterol Performed By: #### L 500.4100, L500.4050 #### [facility] [address] [place], [address] Cholesterol in LDL [Mass/Vol] 112 mg/dL Normal 0-130 [facility] Comment on above: Order Comment: Order Date: 10/04/24 Order Info: 0786- - CMP Order Info: [id number] - LIPID Performed By: #### L 500.4100, L500.4050 #### [facility] [address] [place], [address] Cholesterol in VLDL [Mass/Vol] 28 mg/dL Normal 5-40 [facility] Comment on above: Order Comment: Order Date: 10/04/24 Order Info: 0786-1 - CMP Order Info: [id number] - LIPID Performed By: #### L 500.4100, L500.4050 #### [facility] [address] [place], [address] Triglyceride [Mass/Vol] 139 mg/dL Normal [facility] Comment on above: Order Comment: Order Date: 10/04/24 Order Info: 0786-1 - CMP Order Info: [id number] - LIPID Result Comment: The drugs N-Acetylcysteine and Metamizole may falsely depress this assay. Serum Triglycerides Reference Interval Normal <150 mg/dL Borderline high 150 - 199 mg/dL High 200 - 499 mg/dL Very High > or = 500 mg/dL Performed By: #### L 500.4100, L500.4050 #### [facility] [address] [place], [address] Absolute lymphocyte countOrd ered By: Trever Saldana on 10-02-2023 Lymphocytes Auto (Unsp spec) [#/Vol] 2.27 10*3/uL 0.83-4.51 [facility] Basophil percentageOrdered B y: Trever Saldana on 10-02-2023 Basophils/100 WBC (Bld) 0.3 % 0-1 [facility] Cholesterol [Mass/Vol] 179 mg/dL <200 [facility] Comment on above: <200 mg/dL Desirable 200-240 mg/dL Borderline >240 mg/dL High Risk Eosinophils/100 WBC (Bld) 2.1 % 0-5 [facility] Neutrophils (Bld) [#/Vol] 2.9 10*3/uL 2.0-7.7 [facility] Neutrophils/100 WBC (Bld) 49.8 % 47-70 [facility] Triglyceride [Mass/Vol] 105 mg/dL <199 [facility] Comment on above: The drugs N-Acetylcy steine and Metamizole may falsely depress this assay.Serum Triglycerides Reference Interval Normal <150 mg/dL Borderline high 150 - 199 mg/dL High 200 - 499 mg/dL Very High > or = 500 mg/dL WBC (Bld) [#/Vol] 5.7 10*3/uL 4.4-11.0 [facility] Blood erythrocytes count (nu mber/volume)Ordered By: Trever Saldana on 10-02-2023 RBC (Bld) [#/Vol] 4.57 10*6/uL 4.2-5.4 [facility] Blood hemoglobin measurement (mass/volume)Ordered By: Trever Saldana on 10-02-2023 Hemoglobin (Bld) [Mass/Vol] 13.7 g/dL 12.0-15.0 [facility] Blood lymphocytes/100 leukoc ytesOrdered By: Trever Saldana on 10-02-2023 Lymphocytes/100 WBC (Bld) 39.6 % 19-41 [facility] Blood monocytes/100 leukocyt esOrdered By: Trever Saldana on 10-02-2023 Monocytes/100 WBC (Bld) 8.0 % 0-10 [facility] Blood platelet mean volumeOr dered By: Trever Saldana on 10-02-2023 Platelet mean volume (Bld) [Entitic vol] 11.5 fL 6.2-12.0 [facility] Determination of erythrocyte mean corpuscular volume (MCV)Ordered By: Trever Saldana on 10-02-2023 MCV (RBC) [Entitic vol] 91.5 fL 81-99 [facility] Hematocrit Auto (Bld) [Volum e fraction]Ordered By: Trever Saldana on 10-02-2023 Hematocrit (Bld) [Volume fraction] 41.8 % 37-47 [facility] - Chemistry and C hemistry - challengeOrdered By: Trever Saldana on 10-02-2023 ALT [Catalytic activity/Vol] 52 U/L 13-56 [facility] - Hematology and Cell countsOrdered By: Trever Saldana on 10-02-2023 Erythrocyte distribution width (RBC) [Entitic vol] 42.6 fL 35.1-43.9 [facility] Erythrocyte distribution width (RBC) [Ratio] 12.8 % 11.6-14.6 [facility] Immature granulocytes/100 WBC (Bld) 0.200 % 0.0-0.9 [facility] Comment on above: IG% - Immature Granu locytes (promyelocytes, myelocytes and metamyelocytes) > 1% indicates that a LEFT SHIFT is Present. MCH (RBC) [Entitic mass] 30.0 pg 27.0-32.0 [facility] Nucleated RBC/100 WBC (Bld) [Ratio] 0 % 0-5 [facility] MCHC Auto (RBC) [Mass/Vol]Or dered By: Trever Saldana on 10-02-2023 MCHC (RBC) [Mass/Vol] 32.8 g/dL 32-36 [facility] No Panel InformationOrdered By: Trever Saldana on 10-02-2023 Estimated GFR (MDRD) Amer 79 mL/min >60 [facility] Comment on above: GFR Calc Estimated GFR (MDRD) Non-Af Amer 66 mL/min >60 [facility] Comment on above: Non- GFR Calc Platelets bldOrdered By: Lissett Saldana on 10-02-2023 Platelets (Bld) [#/Vol] 233 10*3/uL 150-450 [facility] Serum or plasma cholesterol in HDL measurement (mass/volume)Ordered By: Trever Saldana on 10-02-2023 Cholesterol in HDL [Mass/Vol] 64 mg/dL >40 [facility] Comment on above: The drugs N-Acetylcy steine and Metamizole may falsely depress this assay. Reference Range HDL <40 mg/dL Low HDL Cholesterol HDL >or= 60 mg/dL High HDL Cholesterol Serum or plasma cholesterol in VLDL measurement (mass/volume)Ordered By: Trever Saldana on 10-02-2023 Cholesterol in VLDL [Mass/Vol] 21 mg/dL 5-40 [facility] Serum or plasma creatinine m easurement (mass/volume)Ordered By: Trever Saldana on 10-02-2023 Creatinine [Mass/Vol] 0.92 mg/dL 0.55-1.02 [facility] Comment on above: The validity of the calculated GFR & GFRAA in patients over 70 years has not been determined. Clinical correlation is essential. Serum or plasma low density lipoprotein (LDL) cholesterol measurement (mass/volume)Ordered By: Trever Saldana on 10-02-2023 Cholesterol in LDL [Mass/Vol] 94 mg/dL 0-130 [facility] Whole blood hemoglobin A1c/t otal hemoglobin ratio (mass fraction)Ordered By: Trever Saldana on 10-02-2023 HbA1c (Bld) [Mass fraction] 5.2 % 3.8-5.6 [facility] Comment on above: Normal < 5.7 % Predi abetic 5.7 - 6.4 % Diabetic >or= 6.5 % Please note range changes. Office Visit: Abnormal right mammogramon 04-01-2017 Dietary management education, guidance, and counseling (procedure) yes Invalid Interpretation Code [facility] Work Phone: Documentation of current medications (procedure) Done Invalid Interpretation Code [facility] Work Phone: Fall risk assessment Fall risk assessment Invalid Interpretation Code [facility] Work Phone: Smoking cessation education (procedure) yes Invalid Interpretation Code [place] [email or web address] Work Phone: Tobacco use [facility] Current every day smoker Invalid Interpretation Code [facility] Work Phone: Office Visit: Abnormal right mammogramon 03-26-2017 Breast Mammogram screening Abnormal Right Invalid Interpretation Code [facility] Work Phone: Office Visit: evaluation inf ected cystic lesion left upper neck by david 08-22-2015 Alcoholism counseling (procedure) no Invalid Interpretation Code [facility] Work Phone: Dietary management education, guidance, and counseling (procedure) yes Invalid Interpretation Code [facility] Work Phone: Documentation of current medications (procedure) Done Invalid Interpretation Code [facility] Work Phone: Smoking cessation education (procedure) yes Invalid Interpretation Code [facility] Work Phone: Tobacco smoking status NHIS Never Invalid Interpretation Code [facility] Work Phone: Tobacco use [facility] Current every day smoker Invalid Interpretation Code [facility] Work Phone: Vital Signs Date Time Vital Sign Value Performing Clinician Facility 04-01-2017 09:14-0400 BMI (Body Mass Index) 34.05 kg/m2 Beatris Villa [facility] [place] [facility] Work Phone: 04-01-2017 09:14-0400 Body Temperature 97.8 [degF] [facility] Work Phone: 04-01-2017 09:14-0400 Body Temperature 97.81 [degF] Beatris Villa LPN [facility] Work Phone: 04-01-2017 09:14-0400 BP Diastolic 52 mm[Hg] Beatris Villa [facility] [place] [facility] Work Phone: 04-01-2017 09:14-0400 BP Systolic 135 mm[Hg] Beatris Villa [facility] [place] [facility] Work Phone: 04-01-2017 09:14-0400 BSA (Body Surface Area) 2.21 m2 [facility] Work Phone: 04-01-2017 09:14-0400 Height 175.9 cm [facility] Work Phone: 04-01-2017 09:14-0400 Pulse (Heart Rate) 63 /min [facility]ris yMers [facility] d[facility]in[facility] Work Phone: 04-01-2017 09:14-0400 Pulse Oximetry 100 % [facility] Work Phone: 04-01-2017 09:14-0400 Respiratory Rate 16 /min [facility] Myers [facility] Work Phone: 04-01-2017 09:14-0400 Weight 105.37 kg Beatris Villa LPN [facility] Work Phone: 08-22-2015 09:06-0400 BMI (Body Mass Index) 35.77 kg/m2 Kwame Frias [facility] Work Phone: 08-22-2015 09:06-0400 Body Temperature 96.8 [degF] [facility] Work Phone: 08-22-2015 09:06-0400 BP Diastolic 80 mm[Hg] Kwame Frias [facility] Work Phone: 08-22-2015 09:06-0400 BP Systolic 118 mm[Hg] Kwame Frias [facility] Work Phone: 08-22-2015 09:06-0400 BSA (Body Surface Area) 2.26 m2 Kwame Frias [facility] Work Phone: 08-22-2015 09:06-0400 Height 175.9 cm [facility] Work Phone: 08-22-2015 09:06-0400 Pulse (Heart Rate) 54 /min [facility] Work Phone: 08-22-2015 09:06-0400 Pulse Oximetry 98 % [facility] Work Phone: 08-22-2015 09:06-0400 Respiratory Rate 16 /min [facility] Work Phone: 08-22-2015 09:06-0400 Weight 110.68 kg [facility] Work Phone: Encounters Encounter Date Encounter Type Care Provider Facility Start: 05-22-2025 ambulatory [facility] Facility:[facility] Start: 11-29-2024 End: 11-29-2024 ambulatory [facility] Facility:[facility] Start: 11-25-2024 End: 11-25-2024 ambulatory Trever Saldana Facility:[facility] Start: 10-04-2024 End: 10-04-2024 ambulatory Trever Saldana Facility:[facility] Start: 11-17-2023 End: 11-17-2023 ambulatory [facility] Work Phone: Start: 11-17-2023 End: 11-17-2023 Patient encounter procedure [facility] Work Phone: Start: 10-02-2023 End: 10-02-2023 Patient encounter procedure [facility] Procedures Date Procedure Procedure Detail Performing Clinician Start: 11-17-2023 Screening mammography H/O: surgery History of excis ion of epidermal inclusion cyst Plan of Treatment Date Care Activity Detail Author Start: 04-21-2017 End: 04-21-2017 Appointment Appointment [facility] Work Phone: Start: 04-03-2017 End: 04-03-2017 Appointment Appointment [facility] Work Phone: Start: 04-01-2017 End: 04-01-2017 Appointment Appointment [facility] Work Phone: Start: 04-01-2017 End: 04-01-2017 Bx breast 1st Lesion US imag Bx Breast, device placement, US guidance [facility] Work Phone: Start: 04-01-2017 End: 04-01-2017 Follow Up after Imaging/labs Follow Up after Imaging/labs [facility] Work Phone: Start: 08-22-2015 End: 09-09-2015 Follow Up Appt Other Follow Up Appt Other [facility] Work Phone: Immunizations Immunization Date Immunization Notes Care Provider Fa lility 03-08-2021 Covid (Pfizer) [facility] 02-15-2021 Covid (Pfizer) [facility] Payers Date Payer Category Payer Medicare [id number] 2024 Self-pay [id number] 2017 Unknown [id number] Unknown [facility] [employer] [id number] Unknown [id number] Unknown [id number] Unknown [id number] [id number] Unknown [id number] [id number] Unknown [id number] [id number] Social History Date Type Detail Facility Start: 12-04-2017 Tobacco smoking stat us AKIS Unknown if ever smoked [facility] Start: 1960 Sex Assigned At Female W [facility] Evaluation note Note Date & Type Note Facility Evaluation note No assessment information availa ble [facility] Work Phone: Chief Complaint and Reason for Visit Chief Complaint SCREENING Summary Purpose Family History No Family History Records Found Advance Directives No Advanced Directives Records Found Additional Source Comments Care Teams (unrecognized sec tion and content) Team Status: Active Member Role Status Dates Dr. Trever Saldana MD Family Provider Active Dr. Trever Saldana MD Primary Care Provider Active Team Status: Inactive Member Role Status Dates Dr. Trever Saldana MD Primary Care Provider, Attending Tali rich Active Team Status: Inactive Member Role Status Dates Dr. Trever Saldana MD Primary Care Provide r, Attending Provider, Referring Provider Active Goals (unrecognized section and content) Goals may be documented in a n alternate section INFORMATION SOURCE (unrecogn ized section and content) DATE CREATED AUTHOR 05/03/2025 [facility] FOR RECORDS PERTAINING TO PATIENTS WHO ARE OR HAVE BEEN ENROLLED IN A CHEMICAL DEPENDENCY/SUBSTANCEABUSE PROGRAM, SOME INFORMATION MAY BE OMITTED. This clinical summary was aggregated from multiple sources. Caution should be exercised in using it in the provision of clinical care. This summary normalizes information from multiple sources, and as a consequence, information in this document may materially change the coding, format and clinical context of patient data. In addition, data may be omitted in some cases. CLINICAL DECISIONS SHOULD BE BASED ON THE PRIMARY CLINICAL RECORDS. [employer] [facility]. provides no warranty or guarantee of the accuracy or completeness of information in this document.
[2025-05-04 10:51] LABS: Anion Gap 12 (5-15); BUN 15 mg/dL (4-19); BUN/Creat Ratio 17.3 RATIO (10-20); Calcium,Total 9.4 mg/dL (7.6-11.0); Carbon Dioxide 21.8 mmol/L (21.0-32.0); Chloride 108 mmol/L (98-108); Creatinine, Serum 0.89 mg/dL (0.70-1.20); EST Glomerular Filtration Rate 72 (>60); Glucose 107 mg/dL (70-99); Potassium 4.1 mmol/L (3.3-5.1); Sodium Level 142 mmol/L (133-145)
== END | disposition home or self-care (01) ==
PROVIDERS: PCP Family Medicine; Referring Provider Family Medicine; Visit Provider Family Medicine
DX: R79.9 Abnormal finding of blood chemistry, unspecified (principal)
CPT/HCPCS: 36415; 80048

== ENCOUNTER → 2025-05-22 | Outpatient (CLI) | payer MEDICARE, SELFPAY ==
--- NOTE | 2025-05-22 08:52 | BI_ITS ---
EXAM: DIAG MAMM W/CAD, UNILAT 05/22/2025 CLINICAL HISTORY: F, Age 65 y/o , LEFT BREAST D/T ABNORMAL MAMMGRAM left breast mass. Short-term follow-up exam. Evaluate. Document stability. TECHNIQUE: DIAG MAMM W/CAD, UNILAT. Digital CC and MLO views of the left breast were performed as well as spot compression CC and spot compression MLO views of the left breast mass COMPARISON: Prior exam(s) dated 11/29/2024, 11/25/2024, and 11/17/2023. A left breast ultrasound dated 11/29/2024 was also reviewed.. FINDINGS: TISSUE DENSITY: The breast tissue is almost entirely fatty. Bilateral Breast Mammographic Findings: There is a 9 mm microlobulated mass in the superior medial aspect of the left breast. It appears slightly larger when compared to the prior exam. Further workup with ultrasound will be performed for further evaluation. BI/DIAG MAMM W/CAD, UNILAT IMPRESSION: There is a 9 mm microlobulated mass in the superior medial aspect of the left b reast. It appears slightly larger when compared to the prior exam. Further workup with ultrasound will be performed for further evaluation. OVERALL FINAL ASSESSMENT BI-RADS 0: INCOMPLETE - NEED ADDITIONAL IMAGING EVALUATION. RECOMMENDATION: Ultrasound Recommended A letter with findings and recommendations will be mailed to the patient. Reading Location: [id number]
--- NOTE | 2025-05-22 08:53 | US_ITS ---
PROCEDURE: BREAST LIMITED UNILATERAL 05/22/2025 REASON FOR EXAM: F, Age 65 y/o , ABN FINDINGS Inconclusive mammogram study. Left breast mass. Mass is increasing in size. Evaluate. COMPARISON: Mammogram studies dated 05/22/2025, 11/28/2024, 11/05/2024, and 11/07/2023. A left breast ultrasound study dated 11/29/2024 was also reviewed.. TECHNIQUE: BREAST LIMITED UNILATERAL. FINDINGS: There is no ultrasound abnormality identified in the left breast to correlate to the mass seen on the mammogram. The mass therefore presumably is solid. Stereotactic core biopsy is recommended in order to completely malignancy. US/Breast Limited Unilateral IMPRESSION: There is no ultrasound abnormality identified in the left breast to correlate t o the mass seen on the mammogram. The mass therefore presumably is solid. Stereotactic core biopsy is recommended in orde r to completely malignancy. BI-RADS 4: SUSPICIOUS ABNORMALITY. RECOMMENDATION: Biopsy Recommended Reading Location: [id number]
--- OUTSIDE RECORDS SUMMARY | 2025-05-22 19:45 | XMS RPT_ITS | CCD ---
Author Organization [facility] CliniSyor Care Team Providers Care Investigations Chief Name Role Phone Abundioi INSIDE SALES ASSOCIATE, Beatris F Unavailable Unavailabl e Altagracia Kwame Palomo Unavailable Unavailable Ruggeri INSIDE SALES ASSOCIATE, Beatris F Unavailable Unavailsiria Saldana MD, Dr. Perera Primary Care Provider Les MONTELONGO, Dr. Perera Attending Provider [phone] Les MONTELONGO, Dr. Perera Referring Provider [phone] Trever Saldana Primary Care Unavailable Trever Saldana Attending Unavailable Trever Saldana Referring Unavailable Trever Saldana Primary Care Unavailable Les Trever Attending Unavailable Les Trever Referring Unavailable Les, Trever Primary Care Unavailable Les Trever Attending Unavailable Les, Trever Primary Care Unavailable Les, Trever Attending Unavailable Saldana, Trever Referring Unavailable Saldana, Trever Primary Care Unavailable Les Trever Attending Unavailable Les Trever Referring Unavailable Medications Current Medications Medication Drug Class(es) Dates Sig (Normalized) Sig (Original) atorvastatin 20 mg oral tablet (5 sources) HMG-CoA Reductase Inhibitor Start: 11-17-2017 take 1 tablet by mouth once daily Atorvastatin 20 mg tablet Active 20 mg PO daily November 17, 2017 1:00am take 1 tablet by mouth once piotr y ATORVASTATIN CALCIUM 20 MG TABS One tablet by mouth daily ATORVASTATIN CALCIUM [id number] Valentina Walker ibuprofen 200 mg oral capsule (5 sources) Nonsteroidal Anti-inflammatory Drug Start: 11-17-2017 take 1 capsule by mouth once Ibuprofen 200 mg capsule Active 200 mg PO ONCE November 17, 2017 1:00am IBUPROFEN 200 MG TABS as needed IBUPROFEN [id number] Valentina Walker Problems Active Problems Problem Classification Problem Date Documented Da te Episodic/Chronic Disorders of lipid metabolism (1 source) Pure hypercholesterolemi a, unspecified; Translations: [Pure hypercholesterolemi a, unspecified] Onset: 10-25-2024 Chronic Nonmalignant breast conditions (4 sources) Breast lump; Translations: [Unspecified lump in the right breast, unspecified quadrant] Onset: 04-01-2017 04-01-2017 Episodic Other nutritional; endocrine; and metabolic disorders (4 sources) Overweight; Translations: [Body mass index (BMI) 34.0-34.9, adult] Onset: 04-01-2017 04-01-2017 Chronic Other screening for suspected conditions (not mental disorders or infectious disease) (4 sources) Other abnormal and inconclusive findings on diagnostic imaging of breast; Translations: [Abnormal finding of blood chemistry, unspecified] Onset: 12-19-2024 Episodic Residual codes; unclassified (1 source) Other general [...] parasitic diseases] Onset: 08-22-2015 08-29-2015 Episodic Other skin disorders (3 sources) Localized swelling, mass and lump, neck; Translations: [Localized swelling, mass and lump, neck] Onset: 08-22-2015 08-29-2015 Episodic Unclassified (3 sources) Family history of malignant neoplasm of skin; Translations: [Family history of malignant neoplasm of other organs or systems] Onset: 08-22-2015 09-09-2015 Episodic Results Test Name Value Interpretation Reference Range Facility Anion gap in Serum or Plasma Ordered By: Trever Saldana on 05-04-2025 Anion gap [Moles/Vol] 12 mmol/L 04-13 [facility] BUN/creatinine ratioOrdered By: Trever Saldana on 05-04-2025 Urea nitrogen/Creatinine [Mass ratio] 17.3 mg/mg 09-18 [facility] Basic Metabolic Profile (BMP )on 05-04-2025 BUN/CRE 17.3 RATIO Normal 09-18 [facility] Comment on above: Order Comment: Order Date: 10/04/24 Order Info: 0667-1 - BMP Performed By: #### L 500.2500 #### [facility] [address] [place], [address] Calcium [Mass/Vol] 9.4 mg/dL Normal 7.6-11.0 [facility] Comment on above: Order Comment: Order Date: 10/04/24 Order Info: 666- - BMP Performed By: #### L 500.2500 #### [facility] [address] [place], [address] Chloride [Moles/Vol] 108 mmol/L Normal 98-108 [facility] Comment on above: Order Comment: Order Date: 10/04/24 Order Info: 666- - BMP Performed By: #### L 500.2500 #### [facility] [address] [place], [address] CO2 [Moles/Vol] 21.8 mmol/L Normal 21.0-32.0 [facility] Comment on above: Order Comment: Order Date: 10/04/24 Order Info: 666- - BMP Performed By: #### L 500.2500 #### [facility] [address] [place], [address] Creatinine [Mass/Vol] 0.89 mg/dL Normal 0.70-1.20 [facility] Comment on above: Order Comment: Order Date: 10/04/24 Order Info: 06- - BMP Performed By: #### L 500.2500 #### [facility] [address] [place], [address] GAP 12 Normal 5-15 [facility] Comment on above: Order Comment: Order Date: 10/04/24 Order Info: 06- - BMP Performed By: #### L 500.2500 #### [facility] [address] [place], [address] GFR/1.73 sq M.predicted among non-blacks MDRD (S/P/Bld) [Vol rate/Area] 72 mL/min/{1.73_m2} Normal >60 [facility] Comment on above: Order Comment: Order Date: 10/04/24 Order Info: 0667- - BMP Result Comment: mL/m in/1.73m2 CKD-EPI Creatinine Equation (2020) Performed By: #### L 500.2500 #### [facility] [address] [place], [address] Glucose [Mass/Vol] 107 mg/dL High 70-99 [facility] Comment on above: Order Comment: Order Date: 10/04/24 Order Info: 06 - BMP Performed By: #### L 500.2500 #### [facility] [address] [place], [address] Potassium [Moles/Vol] 4.1 mmol/L Normal 3.3-5.1 [facility] Comment on above: Order Comment: Order Date: 10/04/24 Order Info: 06 - BMP Performed By: #### L 500.2500 #### [facility] [address] [place], [address] Sodium [Moles/Vol] 142 mmol/L Normal 133-145 [facility] Comment on above: Order Comment: Order Date: 10/04/24 Order Info: 06 - BMP Performed By: #### L 500.2500 #### [facility] [address] [place], [address] Urea nitrogen [Mass/Vol] 15 mg/dL Normal 4-19 [facility] Comment on above: Order Comment: Order Date: 10/04/24 Order Info: 06 - BMP Performed By: #### L 500.2500 #### [facility] [address] [place], [address] Carbon dioxide, total [Moles /volume] in Central venous bloodOrdered By: Trever Saldana on 05-04-2025 CO2 [Moles/Vol] 21.8 mmol/L 21.0-32.0 [facility] Chloride assayOrdered By: Gabriele Saldana on 05-04-2025 Chloride [Moles/Vol] 108 mmol/L 98-108 [facility] Glomerular filtration rate ( GFR) estimation/1.73 sq m using serum, plasma, or whole bOrdered By: Trever Saldana on 05-04-2025 GFR/1.73 sq M.predicted among non-blacks MDRD (S/P/Bld) [Vol rate/Area] 72 mL/min/{1.73_m2} >60 [facility] Comment on above: mL/min/1.73m2 CKD-EP I Creatinine Equation (2020) Potassium measurement (mass/ volume)Ordered By: Trever Saldana on 05-04-2025 Potassium (Unsp spec) [Mass/Vol] 4.1 mmol/L 3.3-5.1 [facility] Serum creatinine measurement (mass/volume)Ordered By: Trever Saldana on 05-04-2025 Creatinine [Mass/Vol] 0.89 mg/dL 0.70-1.20 [facility] Serum glucose measurement (m ass/volume)Ordered By: Trever Saldana on 05-04-2025 Glucose [Mass/Vol] 107 mg/dL High 70-99 [facility] Serum or plasma calcium arline urement (mass/volume)Ordered By: Trever Saldana on 05-04-2025 Calcium [Mass/Vol] 9.4 mg/dL 7.6-11.0 [facility] Serum or plasma urea nitroge n measurement (mass/volume)Ordered By: Trever Saldana on 05-04-2025 Urea nitrogen [Mass/Vol] 15 mg/dL 4-19 [facility] Sodium levelOrdered By: Trever Saldana on 05-04-2025 Sodium [Moles/Vol] 142 mmol/L 133-145 [facility] Breast Limited Unilateralon 11-29-2024 Breast Limited Unilateral [facility] Services [address] [place], [place] [id number] Breast Limited Unilateral MR#: [id number] Acct: [id number] Name: DHAVAL COLON Rep #: [id number] : 1960 F 64 From: Quinn Sherman MD PCP: Dr. Trever Saldana MD Status: REG CLI Study: Breast Limited Unilateral Date of Exam: Exam# [id number] Ordering Dr: Trever Saldana MD -[id number] STUDY: ULTRASOUND BREAST - LEFT REASON [...] EST , CC: Dr. Trever Saldana MD Clinical Psychologist Licensed: Signed Normal [facility] DIAG MAMM W/CAD, UNILATon DIAG MAMM W/CAD, [facility] Imaging Services [address] [place] [phone] DIAG MAMM W/CAD, UNILAT MR#: [id number] Acct: [id number] Name: DHAVAL COLON Rep #: [id number] : 1960 F 64 From: Quinn Sherman MD PCP: Dr. Trever Saldana MD Status: REG CL Study: DIAG MAMM W/CAD, UNILAT Date of Exam: 11/29/24 Exam# [id number] Ordering Dr: Trever Saldana MD -[id number] MAMMOGRAPHY - UNILATERAL DIAGNOSTIC: LEFT BREAST [...] EST , CC: Dr. Trever Saldana MD Clinical Psychologist Licensed: Signed Normal [facility] SCRN MAMM (CAD)W/LISANDRA BILATo n 11-25-2024 SCRN MAMM (CAD)W/LISANDRA BILAT [facility] Imaging Services [address] [place] [address] SCRN MAMM (CAD)W/LISANDRA BILAT MR#: [id number] Acct: [id number] Name: DHAVAL COLON OBDULIA Rep #: [id number] : 1960 F 64 From: Quinn Sherman MD PCP: Dr. Trever Saldana MD Status: REG CLI Study: SCRN MAMM (CAD)W/LISANDRA BILAT Date of Exam: 10/31 06/22 Exam# [id number] Ordering Dr: Trever Saldana MD -[id number] MAMMOGRAPHY - BILATERAL SCREENING 3-D TOMOSYNTHESIS [...] EST , CC: Dr. Trever Saldana MD Clinical Psychologist Licensed: Signed Normal [facility] Comprehensive Metabolic Prof ilon 10-04-2024 Albumin [Mass/Vol] 3.7 g/dL Normal 3.2-5.0 [facility] Comment on above: Order Comment: Order Date: 10/04/24 Order Info: [id number] - CMP Order Info: [id number] - LIPID Performed By: #### L 500.4100, L500.4050 #### [facility] [address] [place], [address] Albumin/Globulin [Mass ratio] 1.1 {ratio} Normal 0.9-2.4 [facility] Comment on above: Order Comment: Order Date: 10/04/24 Order Info: [id number] - CMP Order Info: [id number] - LIPID Performed By: #### L 500.4100, L500.4050 #### [facility] [address] [place], [address] ALK P 82 U/L Normal 45-117 [facility] Comment on above: Order Comment: Order Date: 10/04/24 Order Info: 0786-1 - CMP Order Info: [id number] - LIPID Performed By: #### L 500.4100, L500.4050 #### [facility] [address] [place], [address] ALT [Catalytic activity/Vol] 57 U/L High 13-56 [facility] Comment on above: Order Comment: Order Date: 10/04/24 Order Info: 0786-1 - CMP Order Info: [id number] - LIPID Performed By: #### L 500.4100, L500.4050 #### [facility] [address] [place], [address] AST [Catalytic activity/Vol] 26 U/L Normal 15-37 [facility] Comment on above: Order Comment: Order Date: 10/04/24 Order Info: 0786-1 - CMP Order Info: [id number] - LIPID Performed By: #### L 500.4100, L500.4050 #### [facility] [address] [place], [address] Bilirubin [Mass/Vol] 0.80 mg/dL Normal 0.20-1.00 [facility] Comment on above: Order Comment: Order Date: 10/04/24 Order Info: 0786- - CMP Order Info: [id number] - LIPID Result Comment: For patients on eltrombopag therapy, use of Dimension [place] TBIL is not recommended. Performed By: #### L 500.4100, L500.4050 #### [facility] [address] [place], [address] BUN/CRE 20.0 RATIO Normal 10-20 [facility] Comment on above: Order Comment: Order Date: 10/04/24 Order Info: 0786- - CMP Order Info: [id number] - LIPID Performed By: #### L 500.4100, L500.4050 #### [facility] [address] [place], [address] CA,Total 8.9 mg/dL Normal 8.5-10.1 [facility] Comment on above: Order Comment: Order Date: 10/04/24 Order Info: 0786- - CMP Order Info: [id number] - LIPID Performed By: #### L 500.4100, L500.4050 #### [facility] [address] [place], [address] Chloride [Moles/Vol] 110 mmol/L High 98-107 [facility] Comment on above: Order Comment: Order Date: 10/04/24 Order Info: 0786-1 - CMP Order Info: [id number] - LIPID Performed By: #### L 500.4100, L500.4050 #### [facility] [address] [place], [address] CO2 [Moles/Vol] 25.0 mmol/L Normal 21.0-32.0 [facility] Comment on above: Order Comment: Order Date: 10/04/24 Order Info: 0786-1 - CMP Order Info: [id number] - LIPID Performed By: #### L 500.4100, L500.4050 #### [facility] [address] [place], [address] Creatinine [Mass/Vol] 1.05 mg/dL High 0.55-1.02 [facility] Comment on above: Order Comment: Order Date: 10/04/24 Order Info: 07 - CMP Order Info: [id number] - LIPID Result Comment: The validity of the calculated GFR GFRAA in patients over 70 years has not been determined. Clinical correlation is essential. Performed By: #### L 500.4100, L500.4050 #### [facility] [address] [place], [address] EST GFR - AA 68 mL/min Normal >60 [facility] Comment on above: Order Comment: Order Date: 10/04/24 Order Info: 07 - CMP Order Info: [id number] - LIPID Result Comment: Afri can [place] GFR Calc Performed By: #### L 500.4100, L500.4050 #### [facility] [address] [place], [address] GAP 8 Normal 5-15 [facility] Comment on above: Order Comment: Order Date: 10/04/24 Order Info: [id number] - CMP Order Info: [id number] - LIPID Performed By: #### L 500.4100, L500.4050 #### [facility] [address] [place], [address] GFR/1.73 sq M.predicted among non-blacks MDRD (S/P/Bld) [Vol rate/Area] 56 mL/min/{1.73_m2} Low >60 [facility] Comment on above: Order Comment: Order Date: 10/04/24 Order Info: 0786- - CMP Order Info: [id number] - LIPID Result Comment: Non- GFR Calc Performed By: #### L 500.4100, L500.4050 #### [facility] [address] [place], [address] Globulin (S) [Mass/Vol] 3.4 g/dL Normal 2.2-4.2 [facility] Comment on above: Order Comment: Order Date: 10/04/24 Order Info: 0786- - CMP Order Info: [id number] - LIPID Performed By: #### L 500.4100, L500.4050 #### [facility] [address] [place], [address] Glucose [Mass/Vol] 109 mg/dL High 74-106 [facility] Comment on above: Order Comment: Order Date: 10/04/24 Order Info: 0786- - CMP Order Info: [id number] - LIPID Result Comment: Fast ing Glucose result from 100 to 125 mg/dL suggests IMPAIRED HOMEOSTASIS per A.D.A. criteria. Performed By: #### L 500.4100, L500.4050 #### [facility] [address] [place], [address] Potassium [Moles/Vol] 3.9 mmol/L Normal 3.5-5.1 [facility] Comment on above: Order Comment: Order Date: 10/04/24 Order Info: 0786- - CMP Order Info: [id number] - LIPID Performed By: #### L 500.4100, L500.4050 #### [facility] [address] [place], [address] Sodium [Moles/Vol] 142 mmol/L Normal 136-145 [facility] Comment on above: Order Comment: Order Date: 10/04/24 Order Info: 0786- - CMP Order Info: [id number] - LIPID Performed By: #### L 500.4100, L500.4050 #### [facility] [address] [place], [address] T PROT 7.1 g/dL Normal 6.4-8.2 [facility] Comment on above: Order Comment: Order Date: 10/04/24 Order Info: 0786-1 - CMP Order Info: [id number] - LIPID Performed By: #### L 500.4100, L500.4050 #### [facility] [address] [place], [address] Urea nitrogen [Mass/Vol] 21 mg/dL High 7-18 [facility] Comment on above: Order Comment: Order Date: 10/04/24 Order Info: 0786 - CMP Order Info: [id number] - LIPID Performed By: #### L 500.4100, L500.4050 #### [facility] [address] [place], [address] Lipid Profileon 10-04-2024 Cholesterol [Mass/Vol] 215 mg/dL High 200 [facility] Comment on above: Order Comment: Order Date: 10/04/24 Order Info: 07 - CMP Order Info: [id number] - LIPID Result Comment: <200 mg/dL Desirable 200-240 mg/dL Borderline >240 mg/dL High Risk Performed By: #### L 500.4100, L500.4050 #### [facility] [address] [place], [address] Cholesterol in HDL [Mass/Vol] 75 mg/dL Normal [facility] Comment on above: Order Comment: Order Date: 10/04/24 Order Info: 0786- - CMP Order Info: [id number] - LIPID Result Comment: The drugs N-Acetylcysteine and Metamizole may falsely depress this assay. Reference Range HDL <40 mg/dL Low HDL Cholesterol HDL >or= 60 mg/dL High HDL Cholesterol Performed By: #### L 500.4100, L500.4050 #### [facility] [address] [place], [place], [address] Cholesterol in LDL [Mass/Vol] 112 mg/dL Normal 0-130 [facility] Comment on above: Order Comment: Order Date: 10/04/24 Order Info: 0786-1 - CMP Order Info: [id number] - LIPID Performed By: #### L 500.4100, L500.4050 #### [facility] [address] [place], [place], [address] Cholesterol in VLDL [Mass/Vol] 28 mg/dL Normal 5-40 [facility] Comment on above: Order Comment: Order Date: 10/04/24 Order Info: 0786- - CMP Order Info: [id number] - LIPID Performed By: #### L 500.4100, L500.4050 #### [facility] [address] [place], [address] Triglyceride [Mass/Vol] 139 mg/dL Normal [facility] Comment on above: Order Comment: Order Date: 10/04/24 Order Info: 0786-1 - CMP Order Info: [id number] - LIPID Result Comment: The drugs N-Acetylcysteine and Metamizole may falsely depress this assay. Serum Triglycerides Reference Interval Normal <150 mg/dL Borderline high 150 - 199 mg/dL High 200 - 499 mg/dL Very High > or = 500 mg/dL Performed By: #### L 500.4100, L500.4050 #### [facility] [address] [place], [place], [address] Absolute lymphocyte countOrd ered By: Trever Saldana on 10-02-2023 Lymphocytes Auto (Unsp spec) [#/Vol] 2.27 10*3/uL 0.83-4.51 [facility] Basophil percentageOrdered B y: Trever Saldana on 10-02-2023 Basophils/100 WBC (Bld) 0.3 % 0-1 [facility] Cholesterol [Mass/Vol] 179 mg/dL <200 [facility] Comment on above: <200 mg/dL Desirable 200-240 mg/dL Borderline >240 mg/dL High Risk Eosinophils/100 WBC (Bld) 2.1 % 0-5 [facility] Neutrophils (Bld) [#/Vol] 2.9 10*3/uL 2.0-7.7 [facility] Neutrophils/100 WBC (Bld) 49.8 % 47-70 [facility] Triglyceride [Mass/Vol] 105 mg/dL <199 [facility] Comment on above: The drugs N-Acetylcy steine and Metamizole may falsely depress this assay.Serum Triglycerides Reference Interval Normal <150 mg/dL Borderline high 150 - 199 mg/dL High 200 - 499 mg/dL Very High > or = 500 mg/dL WBC (Bld) [#/Vol] 5.7 10*3/uL 4.4-11.0 [facility] Blood erythrocytes count (nu mber/volume)Ordered By: Trever Saldana on 10-02-2023 RBC (Bld) [#/Vol] 4.57 10*6/uL 4.2-5.4 [facility] Blood hemoglobin measurement (mass/volume)Ordered By: Trever Saldana on 10-02-2023 Hemoglobin (Bld) [Mass/Vol] 13.7 g/dL 12.0-15.0 [facility] Blood lymphocytes/100 leukoc ytesOrdered By: Trever Saldana on 10-02-2023 Lymphocytes/100 WBC (Bld) 39.6 % 19-41 [facility] Blood monocytes/100 leukocyt esOrdered By: Trever Saldana on 10-02-2023 Monocytes/100 WBC (Bld) 8.0 % 0-10 [facility] Blood platelet mean volumeOr dered By: Trever Saldana on 10-02-2023 Platelet mean volume (Bld) [Entitic vol] 11.5 fL 6.2-12.0 [facility] Determination of erythrocyte mean corpuscular volume (MCV)Ordered By: Trever Saldana on 10-02-2023 MCV (RBC) [Entitic vol] 91.5 fL 81-99 [facility] Hematocrit Auto (Bld) [Volum e fraction]Ordered By: Trever Saldana on 10-02-2023 Hematocrit (Bld) [Volume fraction] 41.8 % 37-47 [facility] - Chemistry and C hemistry - challengeOrdered By: Trever Saldana on 10-02-2023 ALT [Catalytic activity/Vol] 52 U/L 13-56 [facility] - Hematology and Cell countsOrdered By: Trever Saldana on 10-02-2023 Erythrocyte distribution width (RBC) [Entitic vol] 42.6 fL 35.1-43.9 [facility] Erythrocyte distribution width (RBC) [Ratio] 12.8 % 11.6-14.6 [facility] Immature granulocytes/100 WBC (Bld) 0.200 % 0.0-0.9 [facility] Comment on above: IG% - Immature Granu locytes (promyelocytes, myelocytes and metamyelocytes) > 1% indicates that a LEFT SHIFT is Present. MCH (RBC) [Entitic mass] 30.0 pg 27.0-32.0 [facility] Nucleated RBC/100 WBC (Bld) [Ratio] 0 % 0-5 [facility] MCHC Auto (RBC) [Mass/Vol]Or dered By: Trever Saldana on 10-02-2023 MCHC (RBC) [Mass/Vol] 32.8 g/dL 32-36 [facility] No Panel InformationOrdered By: Trever Saldana on 10-02-2023 Estimated GFR (MDRD) Amer 79 mL/min >60 [facility] Comment on above: GFR Calc Estimated GFR (MDRD) Non-Af Amer 66 mL/min >60 [facility] Comment on above: Non- GFR Calc Platelets bldOrdered By: Lissett Saldana on 10-02-2023 Platelets (Bld) [#/Vol] 233 10*3/uL 150-450 [facility] Serum or plasma cholesterol in HDL measurement (mass/volume)Ordered By: Trever Saldana on 10-02-2023 Cholesterol in HDL [Mass/Vol] 64 mg/dL >40 [facility] Comment on above: The drugs N-Acetylcy steine and Metamizole may falsely depress this assay. Reference Range HDL <40 mg/dL Low HDL Cholesterol HDL >or= 60 mg/dL High HDL Cholesterol Serum or plasma cholesterol in VLDL measurement (mass/volume)Ordered By: Trever Saldana on 10-02-2023 Cholesterol in VLDL [Mass/Vol] 21 mg/dL 5-40 [facility] Serum or plasma creatinine m easurement (mass/volume)Ordered By: Trever Saldana on 10-02-2023 Creatinine [Mass/Vol] 0.92 mg/dL 0.55-1.02 [facility] Comment on above: The validity of the calculated GFR & GFRAA in patients over 70 years has not been determined. Clinical correlation is essential. Serum or plasma low density lipoprotein (LDL) cholesterol measurement (mass/volume)Ordered By: Trever Saldana on 10-02-2023 Cholesterol in LDL [Mass/Vol] 94 mg/dL 0-130 [facility] Whole blood hemoglobin A1c/t otal hemoglobin ratio (mass fraction)Ordered By: Trever Saldana on 10-02-2023 HbA1c (Bld) [Mass fraction] 5.2 % 3.8-5.6 [facility] Comment on above: Normal < 5.7 % Predi abetic 5.7 - 6.4 % Diabetic >or= 6.5 % Please note range changes. Office Visit: Abnormal right mammogramon 04-01-2017 Dietary management education, guidance, and counseling (procedure) yes Invalid Interpretation Code [facility] Work Phone: Documentation of current medications (procedure) Done Invalid Interpretation Code [facility] Work Phone: Fall risk assessment Fall risk assessment Invalid Interpretation Code [facility] Work Phone: Smoking cessation education (procedure) yes Invalid Interpretation Code [facility] Work Phone: Tobacco use [facility] Current every day smoker Invalid Interpretation Code [facility] Work Phone: Office Visit: Abnormal right mammogramon 03-26-2017 Breast Mammogram screening Abnormal Right Invalid Interpretation Code [facility] Work Phone: Office Visit: evaluation inf ected cystic lesion left upper neck by earlobeon 08-22-2015 Alcoholism counseling (procedure) no Invalid Interpretation Code [facility] [employer] Work Phone: Dietary management education, guidance, and counseling (procedure) yes Invalid Interpretation Code [facility] [employer] Work Phone: Documentation of current medications (procedure) Done Invalid Interpretation Code [facility] [employer] Work Phone: Smoking cessation education (procedure) yes Invalid Interpretation Code [facility] Work Phone: Tobacco smoking status NHIS Never Invalid Interpretation Code [facility] Work Phone: Tobacco use CPHS Current every day smoker Invalid Interpretation Code [facility] Work Phone: Vital Signs Date Time Vital Sign Value Performing Clinician Facility 04-01-2017 09:14-0400 BMI (Body Mass Index) 34.05 kg/m2 Beatris Villa LPN [facility] Work Phone: 04-01-2017 09:14-0400 Body Temperature 97.8 [degF] Beatris [facility] LPN [facility] Work Phone: 04-01-2017 09:14-0400 Body Temperature 97.81 [degF] Beatris Villa LPN [facility] Work Phone: 04-01-2017 09:14-0400 BP Diastolic 52 mm[Hg] Beatris [facility] LPN [facility] Work Phone: 04-01-2017 09:14-0400 BP Systolic 135 mm[Hg] Beatris Villa LPN [facility] Work Phone: 04-01-2017 09:14-0400 BSA (Body Surface Area) 2.21 m2 Beatris Villa LPN [facility] Work Phone: 04-01-2017 09:14-0400 Height 175.9 cm [facility] Work Phone: 04-01-2017 09:14-0400 Pulse (Heart Rate) 63 /min [facility] Work Phone: 04-01-2017 09:14-0400 Pulse Oximetry 100 % Beatris Villa LPN [facility] Work Phone: 04-01-2017 09:14-0400 Respiratory Rate 16 /min Beatris Villa LPN [facility] Work Phone: 04-01-2017 09:14-0400 Weight 105.37 kg Beatris Villa LPN [facility] Work Phone: 08-22-2015 09:06-0400 BMI (Body Mass Index) 35.77 kg/m2 [facility] Work Phone: 08-22-2015 09:06-0400 Body Temperature 96.8 [degF] [facility] [employer] Work Phone: 08-22-2015 09:06-0400 BP Diastolic 80 mm[Hg] [facility] [employer] Work Phone: 08-22-2015 09:06-0400 BP Systolic 118 mm[Hg] [facility] [employer] Work Phone: 08-22-2015 09:06-0400 BSA (Body Surface Area) 2.26 m2 [facility] [employer] Work Phone: 08-22-2015 09:06-0400 Height 175.9 cm [facility] [employer] Work Phone: 08-22-2015 09:06-0400 Pulse (Heart Rate) 54 /min [facility] Work Phone: 08-22-2015 09:06-0400 Pulse Oximetry 98 % [facility] Work Phone: 08-22-2015 09:06-0400 Respiratory Rate 16 /min [facility] [employer] Work Phone: 08-22-2015 09:06-0400 Weight 110.68 kg [facility] [employer] Work Phone: Encounters Encounter Date Encounter Type Care Provider Facility Start: 05-04-2025 End: 05-04-[address] Trever Saldana MD Work Phone: [facility] Work Phone: Start: 05-04-2025 End: 05-04-[address] Trever Saldana MD -Laboratory [facility] Start: 05-04-2025 End: 05-04-2025 ambulatory Trever Saldana Facility:[facility] Start: 11-29-2024 End: 11-29-2024 ambulatory Trever Les Facility:[facility] Start: 11-25-2024 End: 11-25-2024 ambulatory [facility] Les Facility:[facility] Start: 10-04-2024 End: 10-04-2024 ambulatory [facility] Facility:[facility] Start: 11-17-2023 End: 11-17-2023 ambulatory [facility] Work Phone: Start: 11-17-2023 End: 11-17-2023 Patient encounter procedure [facility]-Outpatient Breast Imaging Work Phone: Start: 10-02-2023 End: 10-02-2023 Patient encounter procedure [facility]-Laboratory, [facility] Procedures Date Procedure Procedure Detail Performing Clinician Start: 11-17-2023 Screening mammography H/O: surgery History of excis ion of epidermal inclusion cyst Comment on above: Inferior to left ear lobe Plan of Treatment Date Care Activity Detail Author Start: 05-22-2025 ambulatory Ambulatory Facility:[facility] Start: 04-21-2017 End: 04-21-2017 Appointment Appointment [facility] Work Phone: Start: 04-03-2017 End: 04-03-2017 Appointment Appointment [facility] Work Phone: Start: 04-01-2017 End: 04-01-2017 Appointment Appointment [facility] Work Phone: Start: 04-01-2017 End: 04-01-2017 Bx breast 1st Lesion US imag Bx Breast, device placement, US guidance [facility] Work Phone: Start: 04-01-2017 End: 04-01-2017 Follow Up after Imaging/labs Follow Up after Imaging/labs [facility] Work Phone: Start: 08-22-2015 End: 09-09-2015 Follow Up Appt Other Follow Up Appt Other [facility] Work Phone: Immunizations Immunization Date Immunization Notes Care Provider Rosanne man 03-08-2021 Covid (Pfizer) [facility] 02-15-2021 Covid (Pfizer) [facility] Payers Date Payer Category Payer Medicare [id number] 2024 Self-pay [id number] 2017 Unknown [id number] 04 [id number] Unknown [id number] Unknown [id number] [id number] Unknown [id number] Unknown [id number] [id number] Unknown [id number] [id number] [id number] Unknown [id number] [id number] [id number] Unknown [id number] [id number] [id number] Social History Date Type Detail Facility Start: 12-04-2017 Tobacco smoking stat [facility] Unknown if ever smoked [facility] Start: 1960 Sex Assigned At Female [facility] Start: 12-04-2017 [facility] Evaluation note Note Date & Type Note Facility Evaluation note No assessment information availa ble [facility] Work Phone: Reason for referral (narrative) Note Date & Type Note Facility Reason for referral (narrative) No reason for referral information available [facility] Work Phone: Chief Complaint and Reason [...] Trever Saldana MD Primary Care Provider, Attending P hilario Active Team Status: Inactive Member Role Status Dates Dr. Trever Saldana MD Primary Care Provide r, Attending Provider, Referring Provider Active Team Status: Active Member Role Status Dates Dr. Trever Saldana MD Primary Care Provider Active Team Status: Inactive Member Role Status Dates Dr. Trever Saldana MD Primary Care Provider Active Start: May 04, 2025 End: May 04, 2025 Dr. Trever Saldana MD Attending Provider Active St art: May 04, 2025 End: May 04, 2025 Dr. Trever Saldana MD Referring Provider Active St art: May 04, 2025 End: May 04, 2025 Goals (unrecognized section and content) Goals may be documented in a n alternate sectionGoals may be documented in an alternate section INFORMATION SOURCE (unrecogn ized section and content) DATE CREATED AUTHOR 05/19/2025 [facility] FOR RECORDS PERTAINING TO PATIENTS WHO [...] BE BASED ON THE PRIMARY CLINICAL RECORDS. [employer] provides no warranty or guarantee of the accuracy or completeness of information in this document.
== END | disposition home or self-care (01) ==
LOC: OPBI 08:49
PROVIDERS: PCP Family Medicine; Referring Provider Family Medicine; Visit Provider Family Medicine
DX: R92.8 Other abnormal and inconclusive findings on diagnostic imaging of breast (principal); R68.89 Other general symptoms and signs
CPT/HCPCS: 76642; 77061; 77065; G0279

== ENCOUNTER → 2025-06-08 | Outpatient (CLI) | payer MEDICARE, SELFPAY ==
--- NOTE | 2025-06-08 12:05 | BRBX_PTH ---
PATIENT: DHAVAL COLON LOC: [facility] U#:[id number] AGE/SX: 65/F ROOM: RE06/08/[address]: Dr. Shanthi Hassan MD : 1960 BED: DIS: 06/08/2025 SPEC #: [id number] RECD: 06/08/25 12:30 STATUS: HECTOR REQ #: [id number] JAYLAN: 06/08/25 12:[address]: Shanthi Hassan DEPT: SURGICAL PATHOLOGY RECD BY: Parvez Reddy ENTERED: 06/08/25 13:07 SP TYPE: BREAST BX OT DR: Dr. Trever Saldana MD Tissues: A - Left breast, NOS Procedures: Surgery Specimen Level IV HEADER OPERATION: Left breast stereotactic biopsy PRE-OP DIAGNOSIS: 9mm microlobulated mass superior medial aspect of left breast TISSUE SUBMITTED: A- Left breast core tissue - medial breast mass Ischemic Time: 21 minute Fixation Time: 7 hours, 4 minutes MICROSCOPIC DIAGNOSIS A. Breast, left, 9 mm microlobulated mass superior medial aspect, stereotactic excisional biopsy: - Cavernous hemangioma. COMMENT Selected slides/images were reviewed in intradepartmental consultation by Dr Sandoval kaiser and Dr Erica Monroe ([facility] pathology division, [facility]). MICROSCOPIC DESCRIPTION Slides are reviewed. GROSS DESCRIPTION Received fresh and subsequently placed in formalin labeled with the patient's name and date of are 6 [place]-yellow, fragmented and focally congested lobulated soft tissue cores, 0.8-1.5 cm in length by 0.2-0.4 cm in diameter. The specimen is entirely submitted in 2 cassettes, following postoperative imaging as follows: A1: Chambers #3, #4, and #6 (lobulated area with hemorrhage on imaging)A2: Chambers #1, #2 and #5 Cold ischemic time: 21 minutesFormalin fixation time: 7 hours, 4 minutes ND 06/08/2025 CPT:58692
--- NOTE | 2025-06-08 12:22 | OP.PCM_ITS ---
Operative Report (Standard) Operative Information Date of Procedure: 06/08/25 Pre-Operative Diagnosis: Left breast mass Post-Operative Diagnosis: Same Surgery/Procedure Performed: Stereotactic guided left breast mass personal protection specialist: No Type of Anesthesia: Local MAC Procedure Start Time: 11:45 Procedure Stop Time: 12:05 Select all DRAINS/GRAFTS/IMPLANTS that apply: Implanted device Implanted device details: Mammotome clip Estimated Blood Loss: <5 cc Specimen collected: Yes Description of specimen(s) removed: Left breast mass medial Description of surgery: Procedure: Left stereotactic core biopsy Indications: 65year-old female with lobulated mass in the medial of the left breast?not seen with ultrasound. Risk benefits were discussed the patient and she elected to proceed with stereotactic core biopsy with clip placement Description of procedure: Patient was brought into the mammography suite and laid prone on the stereotactic table. A timeout was completed verifying correct patient, procedure, site, specially, prior to beginning procedure. The left breast was prepped and draped in usual sterile fashion and using local anesthesia was obtained with 1% lidocaine with epi. Patient's left breast was positioned and placed into compression. Initial film showed calcifications are in the center of the compression paddle. 15? views were then taken. The calcifications were localized. The left breast was prepped draped in usual sterile fashion. An 10-gauge mammotome was set up according to the digital coordinates. The tract of the mammotome was anesthetized with local anesthesia and an incision was made with the 11 blade scalpel at the entry site. The mammotome was advanced to the prefire state. Pre-prior films were checked and verified. The mammotome was fired. Post fire films were also checked and verified. Biopsies were taken from 9:00 to 2:00. The specimen was x-rayed and difficult to specifically see on x-ray however it. Did appear clinically to have clots in 3 different chambers. Mammotome clip was placed at the 12 o'clock position. The mammotome was removed from the breast. An additional films were taken which showed entire lesion was removed and a clip was in place. Pressure was held for hemostasis. 2 view mammography was also completed showing lesion completely removed. Once hemostasis was assured the wound was dressed with Steri-Strips and OpSite. The patient tolerated the procedure well and was discharged from the mammography suite good condition. Surgical Findings: See operative report Complications Complications: No
== END | disposition home or self-care (01) ==
LOC: BIRAD 10:52
PROVIDERS: PCP Family Medicine; Referring Provider Surgery; Visit Provider Surgery
DX: R92.8 Other abnormal and inconclusive findings on diagnostic imaging of breast (principal); D18.00 Hemangioma unspecified site
CPT/HCPCS: 19081; 88305